=== PATIENT | female | born 1940 | race Caucasian/White ===

== ENCOUNTER 2017-10-07 12:14 | Inpatient (IN) | payer MEDICARE ==
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
[2017-10-07 13:28] LABS: HEMATOCRIT 34.2 % (41.0-60); HEMOGLOBIN 11.5 gm/dL (12-16); MEAN CELL VOLUME 90.2 fl (81-100); MEAN CORPUSCULAR HEMOGLOBIN 30.2 pg (27.0-31.0); MEAN CORPUSCULAR HGB CONC 33.5 pg (28.0-36.0); PLATELET COUNT 362 Th/cmm (150-400); RED BLOOD COUNT 3.79 Mil/cmm (3.80-5.20); RED CELL DISTRIBUTION WIDTH 15.1 % (11.5-20.0); WHITE BLOOD COUNT 7.4 Th/cmm (4.8-10.8)
[2017-10-07 13:45] LABS: ACETAMINOPHEN < 10.0 ug/mL (10.0-30.0); ALB/GLOB RATIO 1.1 (1.0-1.8); ALBUMIN 3.9 gm/dL (3.7-5.3); ALKALINE PHOSPHATASE 120 U/L (34-104); ANION GAP 12.7 (7.0-16.0); BILIRUBIN,TOTAL 0.6 mg/dL (0.3-1.0); BUN - UREA NITROGEN 16 mg/dL (7-25); CALCIUM SERUM 10.2 mg/dL (8.6-10.3); CARBON DIOXIDE 28.9 mEq/L (21.0-31.0); CHLORIDE 98 mEq/L (98-107); CHOLESTEROL 302 mg/dL (<200); CREATININE - SERUM 0.8 mg/dL (0.6-1.2); GLUCOSE 90 mg/dL (70-105); HDL -HIGH DENSITY LIPOPROTEIN 106 mg/dL (23-92); POTASSIUM SERUM 3.6 mEq/L (3.5-5.1); SGOT 21 U/L (13-39); SGPT/ALT 11 U/L (7-52); SODIUM SERUM 136 mEq/L (136-145); TOTAL PROTEIN,SERUM 7.4 gm/dL (6.0-8.3); TRIGLYCERIDES 91 mg/dL (<150)
[2017-10-07 13:50] LABS: BASOPHIL 4 % (0-3); EOSINOPHIL 2 % (0-5); LYMPHOCYTE 18 % (20-50); MONOCYTE 8 % (2-10); NEUTROPHILS 68 % (40-80); SALICYLATES (ASPIRIN) < 25.0 mg/L (30.0-100.0)
[2017-10-07 13:51] LABS: PLATELET ESTIMATE ADEQUATE (NORMAL)
[2017-10-07 14:18] LABS: URINE MICROSCOPIC INDICATED? YES; URINE SOURCE CLEAN C
[2017-10-07 14:21] LABS: URINE BILIRUBIN NEGATIVE (NEGATIVE); URINE BLOOD SMALL (NEGATIVE); URINE GLUCOSE (UA) NEGATIVE (NEGATIVE); URINE KETONE NEGATIVE (NEGATIVE); URINE LEUKOCYTE ESTERASE NEGATIVE (NEGATIVE); URINE NITRATE NEGATIVE (NEGATIVE); URINE PROTEIN 30 mg/dL (NEGATIVE); URINE UROBILINOGEN 0.2 E.U./dL (0.2 - 1.0)
[2017-10-07 14:36] LABS: AMPHETAMINE URINE NEGATIVE (NEGATIVE); BARBITURATES URINE NEGATIVE (NEGATIVE); BENZODIAZEPINES QUAL URINE NEGATIVE (NEGATIVE); CANNABINOID THC NEGATIVE (NEGATIVE); COCAINE METABOLITE QUAL URINE NEGATIVE (NEGATIVE); METHADONE URINE NEGATIVE (NEGATIVE); METHAMPHETAMINES QUAL URINE NEGATIVE (NEGATIVE); OPIATES (MORPHINE) QUAL. URINE NEGATIVE (NEGATIVE); PHENCYCLIDINE (PCP) URINE NEGATIVE (NEGATIVE); TRICYCLICS (TCA) QUAL. URINE NEGATIVE (NEGATIVE)
[2017-10-07 14:39] LABS: URINE CLARITY CLEAR (CLEAR); URINE COLOR YELLOW
[2017-10-07 14:41] LABS: URINE BACTERIA NONE SEEN /hpf (NONE SEEN); URINE EPITHELIAL CELLS FEW /lpf (FEW); URINE RBC 0-2 /hpf (0-5); URINE WBC 0-2 /hpf (0-5)
[2017-10-07 18:34] VITALS: BP 143/79
[2017-10-07] MEDS ORDERED: Magnesium Hydroxide (MOM) 30 mL UDC PO PRN (18:41)
[2017-10-07] MEDS ORDERED: Maalox 30 mL Cup PO PRN (18:41)
[2017-10-07 21:32] LABS: A1C % 6.4 % (4.0-6.0)
[2017-10-08] MEDS: Multivitamin Tab PO SCH (09:46)
[2017-10-08] MEDS: Vitamin D3 2,000 IU SGL PO SCH (09:46)
[2017-10-08] MEDS: Ferrous Sulfate 325 MG TAB PO SCH (09:46)
--- NOTE | 2017-10-08 20:35 | History & Physical ---
ADMIT DATE: 10/07/2017 HISTORY OF PRESENT ILLNESS: The patient is a 76-year-old female with long history of hypertension, hyperlipidemia, and dementia; admitted to Geropsych Department at [facility] with severe agitation and aggressive behavior. The patient evaluated by the ER physician, admitted to [facility], admitted under Dr. Riddle's service. The patient is a poor historian. PAST MEDICAL HISTORY: Significant for hypertension, hyperlipidemia, degenerative joint disease, and dementia. PAST SURGICAL HISTORY: No recent surgery. ALLERGIES: PENICILLIN. MEDICATIONS: Follow admission reconciliation. SOCIAL HISTORY: No smoking, no alcohol, no drug. FAMILY HISTORY: Noncontributory. REVIEW OF SYSTEMS: IMMUNOSYSTEM: No history of chronic renal disorder. CARDIOVASCULAR SYSTEM: No coronary artery disease. ENDOCRINE SYSTEM: No diabetes or thyroid problem. GASTROINTESTINAL SYSTEM: No upper or lower gastrointestinal bleed. NEUROLOGICAL SYSTEM: Seizure disorder. MUSCULOSKELETAL SYSTEM: No muscular dystrophy. HEMATOLOGIC: No bleeding tendency. RESPIRATORY SYSTEM: No asthma. GENITOURINARY SYSTEM: No dysuria or hematuria. PHYSICAL EXAMINATION: GENERAL: He is awake, not coherent. VITAL SIGNS: Temperature is 98, heart rate is 92, and blood pressure 162/93. HEENT: Normocephalic. Pupils reacting equal to light and accommodation. Sclerae clear. NECK: Supple. Negative for lymphadenopathy, JVD, or bruit. CHEST: Entry of air bilaterally normal. No rhonchi or wheezing. HEART: S1, S2 normal. No murmur or gallop rhythm. ABDOMEN: Soft, bowel sounds positive. EXTREMITIES: No edema. NEUROLOGIC: She is awake, alert, mildly confused. No focal motor deficits. Cranial nerves II through XII are intact. LABORATORY DATA: White blood 7.4, hemoglobin 11.5, hematocrit 34.2, and platelets 362. Sodium 136, potassium 3.6, BUN 16, and creatinine 0.8. Cholesterol 302. ASSESSMENT: 1. Hypertension. 2. Hyperlipidemia. 3. Anemia. 4. Dementia. PLAN: The patient admitted to the Hospital under Dr. Riddle's service. Medical problems addressed during hospitalization are dementia and psychosis. Medical problems addressed at discharge are hypertension, anemia, and hyperlipidemia. The patient is medically stable for activity. Thank you Dr. Riddle for asking me to see your patient. JOB# [id number]
[2017-10-09] MEDS: Multivitamin Tab PO SCH (10:23)
[2017-10-09] MEDS: Ferrous Sulfate 325 MG TAB PO SCH (10:23)
[2017-10-09] MEDS: Vitamin D3 2,000 IU SGL PO SCH (10:23)
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
--- NOTE | 2017-10-09 20:36 | Internal Medicine Prog Note ---
Internal Medicine Subjective - Subjective Service Date: 10/09/17 Patient seen and examined:: with staff Patient is:: awake, verbal, in bed, confused Per staff patient has:: no adverse event Internal Medicine Objective - Results Result Diagrams: 10/07/17 13:20 10/07/17 13:20 Recent Labs: Laboratory Last Values WBC 7.4 Th/cmm (4.8-10.8) 10/07/17 13:20 RBC 3.79 Mil/cmm (3.80-5.20) L 10/07/17 13:20 Hgb 11.5 gm/dL (12-16) L 10/07/17 13:20 Hct 34.2 % (41.0-60) L 10/07/17 13:20 MCV 90.2 fl (81-100) 10/07/17 13:20 MCH 30.2 pg (27.0-31.0) 10/07/17 13:20 MCHC Differential 33.5 pg (28.0-36.0) 10/07/17 13:20 RDW 15.1 % (11.5-20.0) 10/07/17 13:20 Plt Count 362 Th/cmm (150-400) 10/07/17 13:20 MPV 7.0 fl 10/07/17 13:20 Add Manual Diff YES 10/07/17 13:20 Neutrophils (Manual) 68 % (40-80) 10/07/17 13:20 Lymphocytes 18 % (20-50) L 10/07/17 13:20 Monocytes 8 % (2-10) 10/07/17 13:20 Eosinophils 2 % (0-5) 10/07/17 13:20 Basophils 4 % (0-3) H 10/07/17 13:20 Platelet Estimate ADEQUATE (NORMAL) 10/07/17 13:20 Sodium 136 mEq/L (136-145) 10/07/17 13:20 Potassium 3.6 mEq/L (3.5-5.1) 10/07/17 13:20 Chloride 98 mEq/L (98-107) 10/07/17 13:20 Carbon Dioxide 28.9 mEq/L (21.0-31.0) 10/07/17 13:20 Anion Gap 12.7 (7.0-16.0) 10/07/17 13:20 BUN 16 mg/dL (7-25) 10/07/17 13:20 Creatinine 0.8 mg/dL (0.6-1.2) 10/07/17 13:20 Est GFR ( Amer) TNP 10/07/17 13:20 Est GFR (Non-Af Amer) TNP 10/07/17 13:20 BUN/Creatinine Ratio 20.0 10/07/17 13:20 Glucose 90 mg/dL (70-105) 10/07/17 13:20 Hemoglobin A1c % 6.4 % (4.0-6.0) H 10/07/17 13:20 Calcium 10.2 mg/dL (8.6-10.3) 10/07/17 13:20 Total Bilirubin 0.6 mg/dL (0.3-1.0) 10/07/17 13:20 AST 21 U/L (13-39) 10/07/17 13:20 ALT 11 U/L (7-52) 10/07/17 13:20 Alkaline Phosphatase 120 U/L (34-104) H 10/07/17 13:20 Total Protein 7.4 gm/dL (6.0-8.3) 10/07/17 13:20 Albumin 3.9 gm/dL (3.7-5.3) 10/07/17 13:20 Globulin 3.5 gm/dL 10/07/17 13:20 Albumin/Globulin Ratio 1.1 (1.0-1.8) 10/07/17 13:20 Triglycerides 91 mg/dL (<150) 10/07/17 13:20 Cholesterol 302 mg/dL (<200) H 10/07/17 13:20 LDL Cholesterol Direct 151 mg/dL (75-193) 10/07/17 13:20 HDL Cholesterol 106 mg/dL (23-92) H 10/07/17 13:20 TSH 1.63 uIU/ml (0.34-5.60) 10/07/17 13:20 Urine Source CLEAN C 10/07/17 13:00 Urine Color YELLOW 10/07/17 13:00 Urine Clarity CLEAR (CLEAR) 10/07/17 13:00 Urine pH 6.0 (4.6 - 8.0) 10/07/17 13:00 Ur Specific [place] 1.015 (1.005-1.030) 10/07/17 13:00 Urine Protein 30 mg/dL (NEGATIVE) H 10/07/17 13:00 Urine Glucose (UA) NEGATIVE mg/dL (NEGATIVE) 10/07/17 13:00 Urine Ketones NEGATIVE mg/dL (NEGATIVE) 10/07/17 13:00 Urine Blood SMALL (NEGATIVE) H 10/07/17 13:00 Urine Nitrate NEGATIVE (NEGATIVE) 10/07/17 13:00 Urine Bilirubin NEGATIVE (NEGATIVE) 10/07/17 13:00 Urine Urobilinogen 0.2 E.U./dL (0.2 - 1.0) 10/07/17 13:00 Ur Leukocyte Esterase NEGATIVE (NEGATIVE) 10/07/17 13:00 Urine RBC 0-2 /hpf (0-5) 10/07/17 13:00 Urine WBC 0-2 /hpf (0-5) 10/07/17 13:00 Ur Epithelial Cells FEW /lpf (FEW) 10/07/17 13:00 Urine Bacteria NONE SEEN /hpf (NONE SEEN) 10/07/17 13:00 Salicylates < 25.0 mg/L (30.0-100.0) L 10/07/17 13:20 Urine Opiates Screen NEGATIVE (NEGATIVE) 10/07/17 13:00 Urine Methadone Screen NEGATIVE (NEGATIVE) 10/07/17 13:00 Acetaminophen < 10.0 ug/mL (10.0-30.0) L 10/07/17 13:20 Ur Barbiturates Screen NEGATIVE (NEGATIVE) 10/07/17 13:00 Ur Tricyclics Screen NEGATIVE (NEGATIVE) 10/07/17 13:00 Ur Phencyclidine Scrn NEGATIVE (NEGATIVE) 10/07/17 13:00 Amphetamines Screen NEGATIVE (NEGATIVE) 10/07/17 13:00 U Methamphetamines Scrn NEGATIVE (NEGATIVE) 10/07/17 13:00 U Benzodiazepines Scrn NEGATIVE (NEGATIVE) 10/07/17 13:00 U Cocaine Metab Screen NEGATIVE (NEGATIVE) 10/07/17 13:00 U Cannabinoids Screen NEGATIVE (NEGATIVE) 10/07/17 13:00 Ethyl Alcohol < 10 mg/dL (0-10) 10/07/17 13:20 RPR NONREACTIVE (NONREACTIVE) 10/07/17 13:20 - Physical Exam Vitals and I&O: Vital Signs Temp 99 F 10/09/17 19:54 Pulse 112 10/09/17 19:54 Resp 20 10/09/17 19:54 BP 126/78 10/09/17 19:54 Pulse Ox 93 10/09/17 19:54 Intake & Output 10/09/17 10/09/17 10/10/17 06:59 18:59 06:59 Intake Total 650 240 Balance 650 240 Intake: Oral 650 240 Other: # Voids 3 2 Active Medications: Current Medications Acetaminophen (Tylenol) 650 mg PO Q4HR PRN PRN Reason: Mild Pain / Temp above 100 Stop: 12/06/17 18:40 Al Hydrox/Mg Hydrox/Simethicone (Maalox) 30 ml PO Q4HR PRN PRN Reason: GI DISTRESS Stop: 12/06/17 18:40 Atorvastatin Calcium (Lipitor) 40 mg PO HS [facility] Stop: 12/06/17 20:59 Last Admin: 10/08/17 22:06 Dose: 40 mg Cyanocobalamin (Vitamin B12) 1,000 mcg PO DAILY [facility] Stop: 12/07/17 08:59 Last Admin: 10/09/17 10:23 Dose: 1,000 mcg Ferrous Sulfate (Iron) 325 mg PO DAILY [facility] Stop: 12/07/17 08:59 Last Admin: 10/09/17 10:23 Dose: 325 mg Lorazepam (Ativan) 0.5 mg PO Q4HR PRN; Protocol PRN Reason: Agitation Stop: 11/06/17 18:40 Last Admin: 10/07/17 20:37 Dose: 0.5 mg Losartan Potassium (Cozaar) 100 mg PO DAILY [facility] Stop: 12/07/17 08:59 Last Admin: 10/09/17 10:23 Dose: 100 mg Magnesium Hydroxide (Milk Of Magnesia) 30 ml PO HS PRN PRN Reason: Constipation Multivitamins/Vitamin C (Theragran) 1 tab PO DAILY [facility] Stop: 12/07/17 08:59 Last Admin: 10/09/17 10:23 Dose: 1 tab Quetiapine Fumarate (Seroquel) 12.5 mg PO TID [facility]; Protocol Stop: 12/07/17 14:59 Last Admin: 10/09/17 13:16 Dose: 12.5 mg Vitamin D (Vitamin D3) 2,000 iu PO DAILY [facility] Stop: 12/07/17 08:59 Last Admin: 10/09/17 10:23 Dose: 2,000 iu Zolpidem Tartrate (Ambien) 5 mg PO HS PRN PRN Reason: Insomnia Stop: 12/06/17 18:40 Last Admin: 10/07/17 21:33 Dose: 5 mg General: demented HEENT: NC/AT, PERRLA, anicteric sclerae, throat clear Neck: Supple, No JVD, No thyromegaly, +2 carotid pulse wo bruit, No LAD Lungs: CTAB Cardiovascular: RRR, Normal S1, Normal S2, without murmur Abdomen: non-tender, non-distended Extremities: clear Neurological: no change Internal Medicine Assmt/Plan - Assessment Assessment: 1.HTN. 2.HYPERLIPIDEMIA. 3.ANEMIA. 4.DEMENTIA. - Plan Plan: CONTINUE ON CURRENT MEDICATION AND DIET
--- NOTE | 2017-10-09 23:42 | Progress Notes ---
DATE: 10/09/2017 SUBJECTIVE: Chart reviewed and the patient interviewed. Also, discussed the patient's condition with the staff and reviewed records and labs. The patient is still confused and she is still agitated and irritable. The patient also is still unable to follow directions. The patient also still poor personal hygiene. The patient also still needs lots of redirections. Otherwise, the patient is compliant with taking her medications with no side effects of medications. ASSESSMENT: The patient is still agitated and is still in irritable mood. TREATMENT PLAN: We will continue monitoring her behavior and her condition closely. Also, continue to work on ineffective coping and continue to follow up. JOB# [id number]
[2017-10-10] MEDS: Vitamin D3 2,000 IU SGL PO SCH (09:23)
[2017-10-10] MEDS: Multivitamin Tab PO SCH (09:23)
[2017-10-10] MEDS: Ferrous Sulfate 325 MG TAB PO SCH (09:23)
--- NOTE | 2017-10-10 17:13 | Internal Medicine Prog Note ---
Internal Medicine Subjective - Subjective Service Date: 10/10/17 Patient seen and examined:: with staff Patient is:: awake, verbal, in bed, confused Per staff patient has:: no adverse event Internal Medicine Objective - Results Result Diagrams: 10/07/17 13:20 10/07/17 13:20 Recent Labs: Laboratory Last Values WBC 7.4 Th/cmm (4.8-10.8) 10/07/17 13:20 RBC 3.79 Mil/cmm (3.80-5.20) L 10/07/17 13:20 Hgb 11.5 gm/dL (12-16) L 10/07/17 13:20 Hct 34.2 % (41.0-60) L 10/07/17 13:20 MCV 90.2 fl (81-100) 10/07/17 13:20 MCH 30.2 pg (27.0-31.0) 10/07/17 13:20 MCHC Differential 33.5 pg (28.0-36.0) 10/07/17 13:20 RDW 15.1 % (11.5-20.0) 10/07/17 13:20 Plt Count 362 Th/cmm (150-400) 10/07/17 13:20 MPV 7.0 fl 10/07/17 13:20 Add Manual Diff YES 10/07/17 13:20 Neutrophils (Manual) 68 % (40-80) 10/07/17 13:20 Lymphocytes 18 % (20-50) L 10/07/17 13:20 Monocytes 8 % (2-10) 10/07/17 13:20 Eosinophils 2 % (0-5) 10/07/17 13:20 Basophils 4 % (0-3) H 10/07/17 13:20 Platelet Estimate ADEQUATE (NORMAL) 10/07/17 13:20 Sodium 136 mEq/L (136-145) 10/07/17 13:20 Potassium 3.6 mEq/L (3.5-5.1) 10/07/17 13:20 Chloride 98 mEq/L (98-107) 10/07/17 13:20 Carbon Dioxide 28.9 mEq/L (21.0-31.0) 10/07/17 13:20 Anion Gap 12.7 (7.0-16.0) 10/07/17 13:20 BUN 16 mg/dL (7-25) 10/07/17 13:20 Creatinine 0.8 mg/dL (0.6-1.2) 10/07/17 13:20 Est GFR ( Amer) TNP 10/07/17 13:20 Est GFR (Non-Af Amer) TNP 10/07/17 13:20 BUN/Creatinine Ratio 20.0 10/07/17 13:20 Glucose 90 mg/dL (70-105) 10/07/17 13:20 Hemoglobin A1c % 6.4 % (4.0-6.0) H 10/07/17 13:20 Calcium 10.2 mg/dL (8.6-10.3) 10/07/17 13:20 Total Bilirubin 0.6 mg/dL (0.3-1.0) 10/07/17 13:20 AST 21 U/L (13-39) 10/07/17 13:20 ALT 11 U/L (7-52) 10/07/17 13:20 Alkaline Phosphatase 120 U/L (34-104) H 10/07/17 13:20 Total Protein 7.4 gm/dL (6.0-8.3) 10/07/17 13:20 Albumin 3.9 gm/dL (3.7-5.3) 10/07/17 13:20 Globulin 3.5 gm/dL 10/07/17 13:20 Albumin/Globulin Ratio 1.1 (1.0-1.8) 10/07/17 13:20 Triglycerides 91 mg/dL (<150) 10/07/17 13:20 Cholesterol 302 mg/dL (<200) H 10/07/17 13:20 LDL Cholesterol Direct 151 mg/dL (75-193) 10/07/17 13:20 HDL Cholesterol 106 mg/dL (23-92) H 10/07/17 13:20 TSH 1.63 uIU/ml (0.34-5.60) 10/07/17 13:20 Urine Source CLEAN C 10/07/17 13:00 Urine Color YELLOW 10/07/17 13:00 Urine Clarity CLEAR (CLEAR) 10/07/17 13:00 Urine pH 6.0 (4.6 - 8.0) 10/07/17 13:00 Ur Specific [place] 1.015 (1.005-1.030) 10/07/17 13:00 Urine Protein 30 mg/dL (NEGATIVE) H 10/07/17 13:00 Urine Glucose (UA) NEGATIVE mg/dL (NEGATIVE) 10/07/17 13:00 Urine Ketones NEGATIVE mg/dL (NEGATIVE) 10/07/17 13:00 Urine Blood SMALL (NEGATIVE) H 10/07/17 13:00 Urine Nitrate NEGATIVE (NEGATIVE) 10/07/17 13:00 Urine Bilirubin NEGATIVE (NEGATIVE) 10/07/17 13:00 Urine Urobilinogen 0.2 E.U./dL (0.2 - 1.0) 10/07/17 13:00 Ur Leukocyte Esterase NEGATIVE (NEGATIVE) 10/07/17 13:00 Urine RBC 0-2 /hpf (0-5) 10/07/17 13:00 Urine WBC 0-2 /hpf (0-5) 10/07/17 13:00 Ur Epithelial Cells FEW /lpf (FEW) 10/07/17 13:00 Urine Bacteria NONE SEEN /hpf (NONE SEEN) 10/07/17 13:00 Salicylates < 25.0 mg/L (30.0-100.0) L 10/07/17 13:20 Urine Opiates Screen NEGATIVE (NEGATIVE) 10/07/17 13:00 Urine Methadone Screen NEGATIVE (NEGATIVE) 10/07/17 13:00 Acetaminophen < 10.0 ug/mL (10.0-30.0) L 10/07/17 13:20 Ur Barbiturates Screen NEGATIVE (NEGATIVE) 10/07/17 13:00 Ur Tricyclics Screen NEGATIVE (NEGATIVE) 10/07/17 13:00 Ur Phencyclidine Scrn NEGATIVE (NEGATIVE) 10/07/17 13:00 Amphetamines Screen NEGATIVE (NEGATIVE) 10/07/17 13:00 U Methamphetamines Scrn NEGATIVE (NEGATIVE) 10/07/17 13:00 U Benzodiazepines Scrn NEGATIVE (NEGATIVE) 10/07/17 13:00 U Cocaine Metab Screen NEGATIVE (NEGATIVE) 10/07/17 13:00 U Cannabinoids Screen NEGATIVE (NEGATIVE) 10/07/17 13:00 Ethyl Alcohol < 10 mg/dL (0-10) 10/07/17 13:20 RPR NONREACTIVE (NONREACTIVE) 10/07/17 13:20 - Physical Exam Vitals and I&O: Vital Signs Temp 97.5 F 07/15/18 14:00 Pulse 85 10/10/17 14:00 Resp 18 10/10/17 14:00 BP 125/72 10/10/17 14:00 Pulse Ox 97 10/10/17 14:00 Intake & Output 10/09/17 10/10/17 10/10/17 18:59 06:59 18:59 Intake Total 650 480 Balance 650 480 Intake: Oral 650 480 Other: # Voids 3 2 Active Medications: Current Medications Acetaminophen (Tylenol) 650 mg PO Q4HR PRN PRN Reason: Mild Pain / Temp above 100 Stop: 12/06/17 18:40 Al Hydrox/Mg Hydrox/Simethicone (Maalox) 30 ml PO Q4HR PRN PRN Reason: GI DISTRESS Stop: 12/06/17 18:40 Atorvastatin Calcium (Lipitor) 40 mg PO HS [facility] Stop: 12/06/17 20:59 Last Admin: 10/09/17 21:07 Dose: 40 mg Cyanocobalamin (Vitamin B12) 1,000 mcg PO DAILY [facility] Stop: 12/07/17 08:59 Last Admin: 10/10/17 09:23 Dose: 1,000 mcg Ferrous Sulfate (Iron) 325 mg PO DAILY [facility] Stop: 12/07/17 08:59 Last Admin: 10/10/17 09:23 Dose: 325 mg Lorazepam (Ativan) 0.5 mg PO Q4HR PRN; Protocol PRN Reason: Agitation Stop: 11/06/17 18:40 Last Admin: 10/07/17 20:37 Dose: 0.5 mg Losartan Potassium (Cozaar) 100 mg PO DAILY [facility] Stop: 12/07/17 08:59 Last Admin: 10/10/17 09:23 Dose: 100 mg Magnesium Hydroxide (Milk Of Magnesia) 30 ml PO HS PRN PRN Reason: Constipation Multivitamins/Vitamin C (Theragran) 1 tab PO DAILY [facility] Stop: 12/07/17 08:59 Last Admin: 10/10/17 09:23 Dose: 1 tab Quetiapine Fumarate (Seroquel) 12.5 mg PO TID [facility]; Protocol Stop: 12/07/17 14:59 Last Admin: 10/10/17 14:45 Dose: 12.5 mg Vitamin D (Vitamin D3) 2,000 iu PO DAILY [facility] Stop: 12/07/17 08:59 Last Admin: 10/10/17 09:23 Dose: 2,000 iu Zolpidem Tartrate (Ambien) 5 mg PO HS PRN PRN Reason: Insomnia Stop: 12/06/17 18:40 Last Admin: 10/07/17 21:33 Dose: 5 mg General: demented HEENT: NC/AT, PERRLA, anicteric sclerae, throat clear Neck: Supple, No JVD, No thyromegaly, +2 carotid pulse wo bruit, No LAD Lungs: CTAB Cardiovascular: RRR, Normal S1, Normal S2, without murmur Abdomen: non-tender, non-distended Extremities: clear Neurological: no change Internal Medicine Assmt/Plan - Assessment Assessment: 1.HTN. 2.HYPERLIPIDEMIA. 3.ANEMIA. 4.DEMENTIA. - Plan Plan: CONTINUE ON CURRENT MEDICATION AND DIET
--- NOTE | 2017-10-11 03:01 | Progress Notes ---
DATE: SUBJECTIVE: Chart reviewed and the patient interviewed. Also discussed the patient's condition with the staff and reviewed records and labs. The patient is still confused. The patient also is still preoccupied. She also is still easily agitated and she is still in irritable mood. She also is interacting minimally with others. The patient also is still having episodes of being loud. Otherwise, she is compliant taking her medications. ASSESSMENT: The patient is still confused and needs close monitoring. TREATMENT PLAN: Continue to monitor her behavior and her condition closely. Also, continue to work on adjusting psychotropic medications and continue to follow up. JOB# [id number]
[2017-10-11] MEDS: Vitamin D3 2,000 IU SGL PO SCH (09:24)
[2017-10-11] MEDS: Multivitamin Tab PO SCH (09:24)
[2017-10-11] MEDS: Ferrous Sulfate 325 MG TAB PO SCH (09:25)
--- NOTE | 2017-10-11 20:57 | Internal Medicine Prog Note ---
Internal Medicine Subjective - Subjective Service Date: 10/11/17 Patient seen and examined:: with staff Patient is:: awake, verbal, in bed, confused Per staff patient has:: no adverse event Internal Medicine Objective - Results Result Diagrams: 10/07/17 13:20 10/07/17 13:20 Recent Labs: Laboratory Last Values WBC 7.4 Th/cmm (4.8-10.8) 10/07/17 13:20 RBC 3.79 Mil/cmm (3.80-5.20) L 10/07/17 13:20 Hgb 11.5 gm/dL (12-16) L 10/07/17 13:20 Hct 34.2 % (41.0-60) L 10/07/17 13:20 MCV 90.2 fl (81-100) 10/07/17 13:20 MCH 30.2 pg (27.0-31.0) 10/07/17 13:20 MCHC Differential 33.5 pg (28.0-36.0) 10/07/17 13:20 RDW 15.1 % (11.5-20.0) 10/07/17 13:20 Plt Count 362 Th/cmm (150-400) 10/07/17 13:20 MPV 7.0 fl 10/07/17 13:20 Add Manual Diff YES 10/07/17 13:20 Neutrophils (Manual) 68 % (40-80) 10/07/17 13:20 Lymphocytes 18 % (20-50) L 10/07/17 13:20 Monocytes 8 % (2-10) 10/07/17 13:20 Eosinophils 2 % (0-5) 10/07/17 13:20 Basophils 4 % (0-3) H 10/07/17 13:20 Platelet Estimate ADEQUATE (NORMAL) 10/07/17 13:20 Sodium 136 mEq/L (136-145) 10/07/17 13:20 Potassium 3.6 mEq/L (3.5-5.1) 10/07/17 13:20 Chloride 98 mEq/L (98-107) 10/07/17 13:20 Carbon Dioxide 28.9 mEq/L (21.0-31.0) 10/07/17 13:20 Anion Gap 12.7 (7.0-16.0) 10/07/17 13:20 BUN 16 mg/dL (7-25) 10/07/17 13:20 Creatinine 0.8 mg/dL (0.6-1.2) 10/07/17 13:20 Est GFR ( Amer) TNP 10/07/17 13:20 Est GFR (Non-Af Amer) TNP 10/07/17 13:20 BUN/Creatinine Ratio 20.0 10/07/17 13:20 Glucose 90 mg/dL (70-105) 10/07/17 13:20 Hemoglobin A1c % 6.4 % (4.0-6.0) H 10/07/17 13:20 Calcium 10.2 mg/dL (8.6-10.3) 10/07/17 13:20 Total Bilirubin 0.6 mg/dL (0.3-1.0) 10/07/17 13:20 AST 21 U/L (13-39) 10/07/17 13:20 ALT 11 U/L (7-52) 10/07/17 13:20 Alkaline Phosphatase 120 U/L (34-104) H 10/07/17 13:20 Total Protein 7.4 gm/dL (6.0-8.3) 10/07/17 13:20 Albumin 3.9 gm/dL (3.7-5.3) 10/07/17 13:20 Globulin 3.5 gm/dL 10/07/17 13:20 Albumin/Globulin Ratio 1.1 (1.0-1.8) 10/07/17 13:20 Triglycerides 91 mg/dL (<150) 10/07/17 13:20 Cholesterol 302 mg/dL (<200) H 10/07/17 13:20 LDL Cholesterol Direct 151 mg/dL (75-193) 10/07/17 13:20 HDL Cholesterol 106 mg/dL (23-92) H 10/07/17 13:20 TSH 1.63 uIU/ml (0.34-5.60) 10/07/17 13:20 Urine Source CLEAN C 10/07/17 13:00 Urine Color YELLOW 10/07/17 13:00 Urine Clarity CLEAR (CLEAR) 10/07/17 13:00 Urine pH 6.0 (4.6 - 8.0) 10/07/17 13:00 Ur Specific [place] 1.015 (1.005-1.030) 10/07/17 13:00 Urine Protein 30 mg/dL (NEGATIVE) H 10/07/17 13:00 Urine Glucose (UA) NEGATIVE mg/dL (NEGATIVE) 10/07/17 13:00 Urine Ketones NEGATIVE mg/dL (NEGATIVE) 10/07/17 13:00 Urine Blood SMALL (NEGATIVE) H 10/07/17 13:00 Urine Nitrate NEGATIVE (NEGATIVE) 10/07/17 13:00 Urine Bilirubin NEGATIVE (NEGATIVE) 10/07/17 13:00 Urine Urobilinogen 0.2 E.U./dL (0.2 - 1.0) 10/07/17 13:00 Ur Leukocyte Esterase NEGATIVE (NEGATIVE) 10/07/17 13:00 Urine RBC 0-2 /hpf (0-5) 10/07/17 13:00 Urine WBC 0-2 /hpf (0-5) 10/07/17 13:00 Ur Epithelial Cells FEW /lpf (FEW) 10/07/17 13:00 Urine Bacteria NONE SEEN /hpf (NONE SEEN) 10/07/17 13:00 Salicylates < 25.0 mg/L (30.0-100.0) L 10/07/17 13:20 Urine Opiates Screen NEGATIVE (NEGATIVE) 10/07/17 13:00 Urine Methadone Screen NEGATIVE (NEGATIVE) 10/07/17 13:00 Acetaminophen < 10.0 ug/mL (10.0-30.0) L 10/07/17 13:20 Ur Barbiturates Screen NEGATIVE (NEGATIVE) 10/07/17 13:00 Ur Tricyclics Screen NEGATIVE (NEGATIVE) 10/07/17 13:00 Ur Phencyclidine Scrn NEGATIVE (NEGATIVE) 10/07/17 13:00 Amphetamines Screen NEGATIVE (NEGATIVE) 10/07/17 13:00 U Methamphetamines Scrn NEGATIVE (NEGATIVE) 10/07/17 13:00 U Benzodiazepines Scrn NEGATIVE (NEGATIVE) 10/07/17 13:00 U Cocaine Metab Screen NEGATIVE (NEGATIVE) 10/07/17 13:00 U Cannabinoids Screen NEGATIVE (NEGATIVE) 10/07/17 13:00 Ethyl Alcohol < 10 mg/dL (0-10) 10/07/17 13:20 RPR NONREACTIVE (NONREACTIVE) 10/07/17 13:20 - Physical Exam Vitals and I&O: Vital Signs Temp 98.1 F 07/16/18 20:00 Pulse 87 10/11/17 20:00 Resp 20 10/11/17 20:00 BP 156/78 10/11/17 20:00 Pulse Ox 99 10/11/17 20:00 Intake & Output 10/11/17 10/11/17 10/12/17 06:59 18:59 06:59 Intake Total 240 Balance 240 Intake: Oral 240 Other: # Voids 2 Active Medications: Current Medications Acetaminophen (Tylenol) 650 mg PO Q4HR PRN PRN Reason: Mild Pain / Temp above 100 Stop: 12/06/17 18:40 Al Hydrox/Mg Hydrox/Simethicone (Maalox) 30 ml PO Q4HR PRN PRN Reason: GI DISTRESS Stop: 12/06/17 18:40 Atorvastatin Calcium (Lipitor) 40 mg PO HS [facility]K Stop: 12/06/17 20:59 Last Admin: 10/10/17 21:20 Dose: 40 mg Cyanocobalamin (Vitamin B12) 1,000 mcg PO DAILY [facility] Stop: 12/07/17 08:59 Last Admin: 10/11/17 09:24 Dose: 1,000 mcg Ferrous Sulfate (Iron) 325 mg PO DAILY [facility]K Stop: 12/07/17 08:59 Last Admin: 10/11/17 09:25 Dose: 325 mg Lorazepam (Ativan) 0.5 mg PO Q4HR PRN; Protocol PRN Reason: Agitation Stop: 11/06/17 18:40 Last Admin: 10/07/17 20:37 Dose: 0.5 mg Losartan Potassium (Cozaar) 100 mg PO DAILY [facility] Stop: 12/07/17 08:59 Last Admin: 10/11/17 09:24 Dose: 100 mg Magnesium Hydroxide (Milk Of Magnesia) 30 ml PO HS PRN PRN Reason: Constipation Multivitamins/Vitamin C (Theragran) 1 tab PO DAILY [facility] Stop: 12/07/17 08:59 Last Admin: 10/11/17 09:24 Dose: 1 tab Quetiapine Fumarate (Seroquel) 12.5 mg PO BID [facility]; Protocol Stop: 12/10/17 08:59 Last Admin: 10/11/17 17:15 Dose: 12.5 mg Vitamin D (Vitamin D3) 2,000 iu PO DAILY [facility] Stop: 12/07/17 08:59 Last Admin: 10/11/17 09:24 Dose: 2,000 iu Zolpidem Tartrate (Ambien) 5 mg PO HS PRN PRN Reason: Insomnia Stop: 12/06/17 18:40 Last Admin: 10/07/17 21:33 Dose: 5 mg General: demented HEENT: NC/AT, PERRLA, anicteric sclerae, throat clear Neck: Supple, No JVD, No thyromegaly, +2 carotid pulse wo bruit, No LAD Lungs: CTAB Cardiovascular: RRR, Normal S1, Normal S2, without murmur Abdomen: non-tender, non-distended Extremities: clear Neurological: no change Internal Medicine Assmt/Plan - Assessment Assessment: 1.HTN. 2.HYPERLIPIDEMIA. 3.ANEMIA. 4.DEMENTIA. - Plan Plan: CONTINUE ON CURRENT MEDICATION AND DIET Nutritional Asmnt/Malnutr-PDOC - Dietary Evaluation Malnutrition Findings (Please click <Entered> for more info): Nutritional Asmnt/Malnutrition Start: 10/11/17 14: 34 Text: Status: Complete Freq: Protocol: Document 10/11/17 14:34 LCHENG (Rec: 10/11/17 14:44 LCHENG [email or web address]) Nutritional Asmnt/Malnutrition Patient General Information Nutritional Screening Moderate Risk Diagnosis psychosis Pertinent Medical Hx/Surgical Hx HTN, hyperlipidemia, DJD, dementia Subjective Information Pt seen in amando-chair in the hallway, talkative and confused. PO intake 75-100% of meals. Current Diet Order/ Nutrition Support PRICE, low fat Pertinent Medications vit B12, Iron, theragran, seroquel, vit D3 Pertinent Labs 10/07 glucose 90, A1c 6.4 Nutritional Hx/Data Height 1.57 m Height (Calculated Centimeters) 157.5 Current Weight (lbs) 45.359 kg Weight (Calculated Kilograms) 45.4 Weight (Calculated Grams) 63273.2 [place] Body Weight 110 Body Mass Index (BMI) 18.3 Weight Status Underweight GI Symptoms GI Symptoms None Last BM 10/07 Difficult in: None Skin Integrity/Comment: carlos score 19 Current %PO Good (75-100%) Estimated Nutritional Goals BEE in Kcals: Using Current wt Calories/Kcals/Kg 25-30 Kcals Calculated 2956-4229 Protein: Using Current wt Protein g/k-1.2 Protein Calculated 45-54 Fluid: ml 1125-1350ml (1ml/kcal) Nutritional Problem No current Nutrition Prob Problem N/A Malnutrition Alert Is there a minimum of two criteria No selected? Query Text:Check all the applicable criteria. A minimum of two criteria are recommended for diagnosis of either severe or non-severe malnutrition. Malnutrition Related to Morbid Obesity Malnutrition related to morbid obesity No Intervention/Recommendation Comments 1. Continue with PRICE, low fat diet as ordered. Monitor glucose level. 2. Monitor PO intake, wt, labs and skin integrity 3. F/U as low risk in 7 days, 10/18 Expected Outcomes/Goals Expected Outcomes/Goals 1. PO intake to meet at least 75% of nutritional needs. 2. Wt stability, skin to remain intact, labs to approach WNL.
--- NOTE | 2017-10-11 23:43 | Progress Notes ---
DATE: 10/11/2017 Chart reviewed and the patient interviewed. Also discussed the patient's condition with the staff and reviewed records and labs. The patient is still confused and her judgment is still poor. The patient also is still having episodes of agitation, but she seems to be calmer than before and she seems to be less agitated. The patient also seems to be slightly sleepy today than yesterday. ASSESSMENT: The patient seems to be calmer and less agitated. TREATMENT PLAN: We will continue monitoring her condition. Also, decrease Seroquel to 12.5 mg twice a day. Also, we will try to get the patient to placement in [facility] and will continue to follow up. [facility]# [id number]
[2017-10-12] MEDS: Multivitamin Tab PO SCH (09:05)
[2017-10-12] MEDS: Ferrous Sulfate 325 MG TAB PO SCH (09:05)
[2017-10-12] MEDS: Vitamin D3 2,000 IU SGL PO SCH (09:05)
--- NOTE | 2017-10-12 22:15 | Internal Medicine Prog Note ---
Internal Medicine Subjective - Subjective Service Date: 10/12/17 Patient seen and examined:: with staff Patient is:: awake, verbal, in bed, confused Per staff patient has:: no adverse event Internal Medicine Objective - Results Result Diagrams: 10/07/17 13:20 10/07/17 13:20 Recent Labs: Laboratory Last Values WBC 7.4 Th/cmm (4.8-10.8) 10/07/17 13:20 RBC 3.79 Mil/cmm (3.80-5.20) L 10/07/17 13:20 Hgb 11.5 gm/dL (12-16) L 10/07/17 13:20 Hct 34.2 % (41.0-60) L 10/07/17 13:20 MCV 90.2 fl (81-100) 10/07/17 13:20 MCH 30.2 pg (27.0-31.0) 10/07/17 13:20 MCHC Differential 33.5 pg (28.0-36.0) 10/07/17 13:20 RDW 15.1 % (11.5-20.0) 10/07/17 13:20 Plt Count 362 Th/cmm (150-400) 10/07/17 13:20 MPV 7.0 fl 10/07/17 13:20 Add Manual Diff YES 10/07/17 13:20 Neutrophils (Manual) 68 % (40-80) 10/07/17 13:20 Lymphocytes 18 % (20-50) L 10/07/17 13:20 Monocytes 8 % (2-10) 10/07/17 13:20 Eosinophils 2 % (0-5) 10/07/17 13:20 Basophils 4 % (0-3) H 10/07/17 13:20 Platelet Estimate ADEQUATE (NORMAL) 10/07/17 13:20 Sodium 136 mEq/L (136-145) 10/07/17 13:20 Potassium 3.6 mEq/L (3.5-5.1) 10/07/17 13:20 Chloride 98 mEq/L (98-107) 10/07/17 13:20 Carbon Dioxide 28.9 mEq/L (21.0-31.0) 10/07/17 13:20 Anion Gap 12.7 (7.0-16.0) 10/07/17 13:20 BUN 16 mg/dL (7-25) 10/07/17 13:20 Creatinine 0.8 mg/dL (0.6-1.2) 10/07/17 13:20 Est GFR ( Amer) TNP 10/07/17 13:20 Est GFR (Non-Af Amer) TNP 10/07/17 13:20 BUN/Creatinine Ratio 20.0 10/07/17 13:20 Glucose 90 mg/dL (70-105) 10/07/17 13:20 Hemoglobin A1c % 6.4 % (4.0-6.0) H 10/07/17 13:20 Calcium 10.2 mg/dL (8.6-10.3) 10/07/17 13:20 Total Bilirubin 0.6 mg/dL (0.3-1.0) 10/07/17 13:20 AST 21 U/L (13-39) 10/07/17 13:20 ALT 11 U/L (7-52) 10/07/17 13:20 Alkaline Phosphatase 120 U/L (34-104) H 10/07/17 13:20 Total Protein 7.4 gm/dL (6.0-8.3) 10/07/17 13:20 Albumin 3.9 gm/dL (3.7-5.3) 10/07/17 13:20 Globulin 3.5 gm/dL 10/07/17 13:20 Albumin/Globulin Ratio 1.1 (1.0-1.8) 10/07/17 13:20 Triglycerides 91 mg/dL (<150) 10/07/17 13:20 Cholesterol 302 mg/dL (<200) H 10/07/17 13:20 LDL Cholesterol Direct 151 mg/dL (75-193) 10/07/17 13:20 HDL Cholesterol 106 mg/dL (23-92) H 10/07/17 13:20 TSH 1.63 uIU/ml (0.34-5.60) 10/07/17 13:20 Urine Source CLEAN C 10/07/17 13:00 Urine Color YELLOW 10/07/17 13:00 Urine Clarity CLEAR (CLEAR) 10/07/17 13:00 Urine pH 6.0 (4.6 - 8.0) 10/07/17 13:00 Ur Specific [place] 1.015 (1.005-1.030) 10/07/17 13:00 Urine Protein 30 mg/dL (NEGATIVE) H 10/07/17 13:00 Urine Glucose (UA) NEGATIVE mg/dL (NEGATIVE) 10/07/17 13:00 Urine Ketones NEGATIVE mg/dL (NEGATIVE) 10/07/17 13:00 Urine Blood SMALL (NEGATIVE) H 10/07/17 13:00 Urine Nitrate NEGATIVE (NEGATIVE) 10/07/17 13:00 Urine Bilirubin NEGATIVE (NEGATIVE) 10/07/17 13:00 Urine Urobilinogen 0.2 E.U./dL (0.2 - 1.0) 10/07/17 13:00 Ur Leukocyte Esterase NEGATIVE (NEGATIVE) 10/07/17 13:00 Urine RBC 0-2 /hpf (0-5) 10/07/17 13:00 Urine WBC 0-2 /hpf (0-5) 10/07/17 13:00 Ur Epithelial Cells FEW /lpf (FEW) 10/07/17 13:00 Urine Bacteria NONE SEEN /hpf (NONE SEEN) 10/07/17 13:00 Salicylates < 25.0 mg/L (30.0-100.0) L 10/07/17 13:20 Urine Opiates Screen NEGATIVE (NEGATIVE) 10/07/17 13:00 Urine Methadone Screen NEGATIVE (NEGATIVE) 10/07/17 13:00 Acetaminophen < 10.0 ug/mL (10.0-30.0) L 10/07/17 13:20 Ur Barbiturates Screen NEGATIVE (NEGATIVE) 10/07/17 13:00 Ur Tricyclics Screen NEGATIVE (NEGATIVE) 10/07/17 13:00 Ur Phencyclidine Scrn NEGATIVE (NEGATIVE) 10/07/17 13:00 Amphetamines Screen NEGATIVE (NEGATIVE) 10/07/17 13:00 U Methamphetamines Scrn NEGATIVE (NEGATIVE) 10/07/17 13:00 U Benzodiazepines Scrn NEGATIVE (NEGATIVE) 10/07/17 13:00 U Cocaine Metab Screen NEGATIVE (NEGATIVE) 10/07/17 13:00 U Cannabinoids Screen NEGATIVE (NEGATIVE) 10/07/17 13:00 Ethyl Alcohol < 10 mg/dL (0-10) 10/07/17 13:20 RPR NONREACTIVE (NONREACTIVE) 10/07/17 13:20 - Physical Exam Vitals and I&O: Vital Signs Temp 98.1 F 07/17/18 16:16 Pulse 88 10/12/17 16:16 Resp 20 10/12/17 16:16 BP 154/86 10/12/17 16:16 Pulse Ox 92 10/12/17 16:16 Active Medications: Current Medications Acetaminophen (Tylenol) 650 mg PO Q4HR PRN PRN Reason: Mild Pain / Temp above 100 Stop: 12/06/17 18:40 Al Hydrox/Mg Hydrox/Simethicone (Maalox) 30 ml PO Q4HR PRN PRN Reason: GI DISTRESS Stop: 12/06/17 18:40 Atorvastatin Calcium (Lipitor) 40 mg PO HS [facility] Stop: 12/06/17 20:59 Last Admin: 10/12/17 20:49 Dose: 40 mg Cyanocobalamin (Vitamin B12) 1,000 mcg PO DAILY [facility] Stop: 12/07/17 08:59 Last Admin: 10/12/17 09:05 Dose: 1,000 mcg Ferrous Sulfate (Iron) 325 mg PO DAILY [facility] Stop: 12/07/17 08:59 Last Admin: 10/12/17 09:05 Dose: 325 mg Lorazepam (Ativan) 0.5 mg PO Q4HR PRN; Protocol PRN Reason: Agitation Stop: 11/06/17 18:40 Last Admin: 10/12/17 20:49 Dose: 0.5 mg Losartan Potassium (Cozaar) 100 mg PO DAILY [facility] Stop: 12/07/17 08:59 Last Admin: 10/12/17 09:04 Dose: 100 mg Magnesium Hydroxide (Milk Of Magnesia) 30 ml PO HS PRN PRN Reason: Constipation Multivitamins/Vitamin C (Theragran) 1 tab PO DAILY [facility] Stop: 12/07/17 08:59 Last Admin: 10/12/17 09:05 Dose: 1 tab Quetiapine Fumarate (Seroquel) 12.5 mg PO BID [facility]; Protocol Stop: 12/10/17 08:59 Last Admin: 10/12/17 16:25 Dose: 12.5 mg Vitamin D (Vitamin D3) 2,000 iu PO DAILY [facility] Stop: 12/07/17 08:59 Last Admin: 10/12/17 09:05 Dose: 2,000 iu Zolpidem Tartrate (Ambien) 5 mg PO HS PRN PRN Reason: Insomnia Stop: 12/06/17 18:40 Last Admin: 10/12/17 00:20 Dose: 5 mg General: demented HEENT: NC/AT, PERRLA, anicteric sclerae, throat clear Neck: Supple, No JVD, No thyromegaly, +2 carotid pulse wo bruit, No LAD Lungs: CTAB Cardiovascular: RRR, Normal S1, Normal S2, without murmur Abdomen: non-tender, non-distended Extremities: clear Neurological: no change Internal Medicine Assmt/Plan - Assessment Assessment: 1.HTN. 2.HYPERLIPIDEMIA. 3.ANEMIA. 4.DEMENTIA. - Plan Plan: CONTINUE ON CURRENT MEDICATION AND DIET Nutritional Asmnt/Malnutr-PDOC - Dietary Evaluation Malnutrition Findings (Please click <Entered> for more info): Nutritional Asmnt/Malnutrition Start: 10/11/17 14: 34 Text: Status: Complete Freq: Protocol: Document 10/11/17 14:34 LCCLARAG (Rec: 10/11/17 14:44 LCCLARAG [id number]) Nutritional Asmnt/Malnutrition Patient General Information Nutritional Screening Moderate Risk Diagnosis psychosis Pertinent Medical Hx/Surgical Hx HTN, hyperlipidemia, DJD, dementia Subjective Information Pt seen in amando-chair in the hallway, talkative and confused. PO intake 75-100% of meals. Current Diet Order/ Nutrition Support PRICE, low fat Pertinent Medications vit B12, Iron, theragran, seroquel, vit D3 Pertinent Labs 10/07 glucose 90, A1c 6.4 Nutritional Hx/Data Height 1.57 m Height (Calculated Centimeters) 157.5 Current Weight (lbs) 45.359 kg Weight (Calculated Kilograms) 45.4 Weight (Calculated Grams) 47931.2 [place] Body Weight 110 Body Mass Index (BMI) 18.3 Weight Status Underweight GI Symptoms GI Symptoms None Last BM 10/07 Difficult in: None Skin Integrity/Comment: carlos score 19 Current %PO Good (75-100%) Estimated Nutritional Goals BEE in Kcals: Using Current wt Calories/Kcals/Kg 25-30 Kcals Calculated 5455-1319 Protein: Using Current wt Protein g/k-1.2 Protein Calculated 45-54 Fluid: ml 1125-1350ml (1ml/kcal) Nutritional Problem No current Nutrition Prob Problem N/A Malnutrition Alert Is there a minimum of two criteria No selected? Query Text:Check all the applicable criteria. A minimum of two criteria are recommended for diagnosis of either severe or non-severe malnutrition. Malnutrition Related to Morbid Obesity Malnutrition related to morbid obesity No Intervention/Recommendation Comments 1. Continue with PRICE, low fat diet as ordered. Monitor glucose level. 2. Monitor PO intake, wt, labs and skin integrity 3. F/U as low risk in 7 days, 10/18 Expected Outcomes/Goals Expected Outcomes/Goals 1. PO intake to meet at least 75% of nutritional needs. 2. Wt stability, skin to remain intact, labs to approach WNL.
--- NOTE | 2017-10-13 01:35 | Progress Notes ---
DATE: 10/12/2017 SUBJECTIVE: Chart reviewed and the patient interviewed. Also discussed the patient's condition with the staff and reviewed records and labs. The patient continued to be confused and anxious. The patient also is still having episodes of irritability and agitation. The patient also is interacting more with confusion and irritability. The patient needs lots of redirections. Impaired immediate, recent memories. Also, personal hygiene is still disheveled. ASSESSMENT: The patient is still confused and still agitated but seems to be less than before. TREATMENT PLAN: Continue to monitor her behavior and her condition closely. Also, continue to work on discharge plans and placement issue. JOB# [id number]
[2017-10-13] MEDS: Vitamin D3 2,000 IU SGL PO SCH (08:34)
[2017-10-13] MEDS: Ferrous Sulfate 325 MG TAB PO SCH (08:34)
[2017-10-13] MEDS: Multivitamin Tab PO SCH (08:36)
--- NOTE | 2017-10-13 21:26 | Progress Notes ---
DATE: 10/13/2017 SUBJECTIVE: Chart reviewed and the patient interviewed. Also discussed the patient's condition with the staff and reviewed records and labs. The patient is still confused and she is still agitated. The patient also is restless and is in irritable mood at times. The patient also is suspicious and easily agitated. Otherwise, the patient is compliant with taking her medications with no side effects of medications. ASSESSMENT: The patient is still psychotic, but easier to redirect her. TREATMENT PLAN: Continue to monitor behavior and condition closely. Also, continue adjusting psychotropic medications and followup. JOB# [id number]
--- NOTE | 2017-10-13 21:37 | Internal Medicine Prog Note ---
Internal Medicine Subjective - Subjective Service Date: 10/13/17 Patient seen and examined:: with staff Patient is:: awake, verbal, in bed, confused Per staff patient has:: no adverse event Internal Medicine Objective - Results Result Diagrams: 10/07/17 13:20 10/07/17 13:20 Recent Labs: Laboratory Last Values WBC 7.4 Th/cmm (4.8-10.8) 10/07/17 13:20 RBC 3.79 Mil/cmm (3.80-5.20) L 10/07/17 13:20 Hgb 11.5 gm/dL (12-16) L 10/07/17 13:20 Hct 34.2 % (41.0-60) L 10/07/17 13:20 MCV 90.2 fl (81-100) 10/07/17 13:20 MCH 30.2 pg (27.0-31.0) 10/07/17 13:20 MCHC Differential 33.5 pg (28.0-36.0) 10/07/17 13:20 RDW 15.1 % (11.5-20.0) 10/07/17 13:20 Plt Count 362 Th/cmm (150-400) 10/07/17 13:20 MPV 7.0 fl 10/07/17 13:20 Add Manual Diff YES 10/07/17 13:20 Neutrophils (Manual) 68 % (40-80) 10/07/17 13:20 Lymphocytes 18 % (20-50) L 10/07/17 13:20 Monocytes 8 % (2-10) 10/07/17 13:20 Eosinophils 2 % (0-5) 10/07/17 13:20 Basophils 4 % (0-3) H 10/07/17 13:20 Platelet Estimate ADEQUATE (NORMAL) 10/07/17 13:20 Sodium 136 mEq/L (136-145) 10/07/17 13:20 Potassium 3.6 mEq/L (3.5-5.1) 10/07/17 13:20 Chloride 98 mEq/L (98-107) 10/07/17 13:20 Carbon Dioxide 28.9 mEq/L (21.0-31.0) 10/07/17 13:20 Anion Gap 12.7 (7.0-16.0) 10/07/17 13:20 BUN 16 mg/dL (7-25) 10/07/17 13:20 Creatinine 0.8 mg/dL (0.6-1.2) 10/07/17 13:20 Est GFR ( Amer) TNP 10/07/17 13:20 Est GFR (Non-Af Amer) TNP 10/07/17 13:20 BUN/Creatinine Ratio 20.0 10/07/17 13:20 Glucose 90 mg/dL (70-105) 10/07/17 13:20 Hemoglobin A1c % 6.4 % (4.0-6.0) H 10/07/17 13:20 Calcium 10.2 mg/dL (8.6-10.3) 10/07/17 13:20 Total Bilirubin 0.6 mg/dL (0.3-1.0) 10/07/17 13:20 AST 21 U/L (13-39) 10/07/17 13:20 ALT 11 U/L (7-52) 10/07/17 13:20 Alkaline Phosphatase 120 U/L (34-104) H 10/07/17 13:20 Total Protein 7.4 gm/dL (6.0-8.3) 10/07/17 13:20 Albumin 3.9 gm/dL (3.7-5.3) 10/07/17 13:20 Globulin 3.5 gm/dL 10/07/17 13:20 Albumin/Globulin Ratio 1.1 (1.0-1.8) 10/07/17 13:20 Triglycerides 91 mg/dL (<150) 10/07/17 13:20 Cholesterol 302 mg/dL (<200) H 10/07/17 13:20 LDL Cholesterol Direct 151 mg/dL (75-193) 10/07/17 13:20 HDL Cholesterol 106 mg/dL (23-92) H 10/07/17 13:20 TSH 1.63 uIU/ml (0.34-5.60) 10/07/17 13:20 Urine Source CLEAN C 10/07/17 13:00 Urine Color YELLOW 10/07/17 13:00 Urine Clarity CLEAR (CLEAR) 10/07/17 13:00 Urine pH 6.0 (4.6 - 8.0) 10/07/17 13:00 Ur Specific [place] 1.015 (1.005-1.030) 10/07/17 13:00 Urine Protein 30 mg/dL (NEGATIVE) H 10/07/17 13:00 Urine Glucose (UA) NEGATIVE mg/dL (NEGATIVE) 10/07/17 13:00 Urine Ketones NEGATIVE mg/dL (NEGATIVE) 10/07/17 13:00 Urine Blood SMALL (NEGATIVE) H 10/07/17 13:00 Urine Nitrate NEGATIVE (NEGATIVE) 10/07/17 13:00 Urine Bilirubin NEGATIVE (NEGATIVE) 10/07/17 13:00 Urine Urobilinogen 0.2 E.U./dL (0.2 - 1.0) 10/07/17 13:00 Ur Leukocyte Esterase NEGATIVE (NEGATIVE) 10/07/17 13:00 Urine RBC 0-2 /hpf (0-5) 10/07/17 13:00 Urine WBC 0-2 /hpf (0-5) 10/07/17 13:00 Ur Epithelial Cells FEW /lpf (FEW) 10/07/17 13:00 Urine Bacteria NONE SEEN /hpf (NONE SEEN) 10/07/17 13:00 Salicylates < 25.0 mg/L (30.0-100.0) L 10/07/17 13:20 Urine Opiates Screen NEGATIVE (NEGATIVE) 10/07/17 13:00 Urine Methadone Screen NEGATIVE (NEGATIVE) 10/07/17 13:00 Acetaminophen < 10.0 ug/mL (10.0-30.0) L 10/07/17 13:20 Ur Barbiturates Screen NEGATIVE (NEGATIVE) 10/07/17 13:00 Ur Tricyclics Screen NEGATIVE (NEGATIVE) 10/07/17 13:00 Ur Phencyclidine Scrn NEGATIVE (NEGATIVE) 10/07/17 13:00 Amphetamines Screen NEGATIVE (NEGATIVE) 10/07/17 13:00 U Methamphetamines Scrn NEGATIVE (NEGATIVE) 10/07/17 13:00 U Benzodiazepines Scrn NEGATIVE (NEGATIVE) 10/07/17 13:00 U Cocaine Metab Screen NEGATIVE (NEGATIVE) 10/07/17 13:00 U Cannabinoids Screen NEGATIVE (NEGATIVE) 10/07/17 13:00 Ethyl Alcohol < 10 mg/dL (0-10) 10/07/17 13:20 RPR NONREACTIVE (NONREACTIVE) 10/07/17 13:20 - Physical Exam Vitals and I&O: Vital Signs Temp 98.2 F 07/18/18 14:00 Pulse 96 10/13/17 14:00 Resp 18 10/13/17 14:00 BP 131/78 10/13/17 14:00 Pulse Ox 100 10/13/17 14:00 Intake & Output 10/13/17 10/13/17 10/14/17 06:59 18:59 06:59 Intake Total 700 Balance 700 Intake: Oral 700 Active Medications: Current Medications Acetaminophen (Tylenol) 650 mg PO Q4HR PRN PRN Reason: Mild Pain / Temp above 100 Stop: 12/06/17 18:40 Al Hydrox/Mg Hydrox/Simethicone (Maalox) 30 ml PO Q4HR PRN PRN Reason: GI DISTRESS Stop: 12/06/17 18:40 Atorvastatin Calcium (Lipitor) 40 mg PO HS [facility] Stop: 12/06/17 20:59 Last Admin: 10/12/17 20:49 Dose: 40 mg Cyanocobalamin (Vitamin B12) 1,000 mcg PO DAILY [facility] Stop: 12/07/17 08:59 Last Admin: 10/13/17 08:36 Dose: 1,000 mcg Ferrous Sulfate (Iron) 325 mg PO DAILY [facility] Stop: 12/07/17 08:59 Last Admin: 10/13/17 08:34 Dose: 325 mg Losartan Potassium (Cozaar) 100 mg PO DAILY [facility] Stop: 12/07/17 08:59 Last Admin: 10/13/17 08:34 Dose: 100 mg Magnesium Hydroxide (Milk Of Magnesia) 30 ml PO HS PRN PRN Reason: Constipation Multivitamins/Vitamin C (Theragran) 1 tab PO DAILY [facility] Stop: 12/07/17 08:59 Last Admin: 10/13/17 08:36 Dose: 1 tab Quetiapine Fumarate (Seroquel) 12.5 mg PO DAILY [facility]; Protocol Stop: 12/12/17 08:59 Last Admin: 10/13/17 08:36 Dose: 12.5 mg Quetiapine Fumarate (Seroquel) 25 mg PO HS [facility]; Protocol Stop: 12/12/17 20:59 Vitamin D (Vitamin D3) 2,000 iu PO DAILY [facility] Stop: 12/07/17 08:59 Last Admin: 10/13/17 08:34 Dose: 2,000 iu General: demented HEENT: NC/AT, PERRLA, anicteric sclerae, throat clear Neck: Supple, No JVD, No thyromegaly, +2 carotid pulse wo bruit, No LAD Lungs: CTAB Cardiovascular: RRR, Normal S1, Normal S2, without murmur Abdomen: non-tender, non-distended Extremities: clear Neurological: no change Internal Medicine Assmt/Plan - Assessment Assessment: 1.HTN. 2.HYPERLIPIDEMIA. 3.ANEMIA. 4.DEMENTIA. - Plan Plan: CONTINUE ON CURRENT MEDICATION AND DIET Nutritional Asmnt/Malnutr-PDOC - Dietary Evaluation Malnutrition Findings (Please click <Entered> for more info): Nutritional Asmnt/Malnutrition Start: 10/11/17 14: 34 Text: Status: Complete Freq: Protocol: Document 10/11/17 14:34 INDIRAG (Rec: 10/11/17 14:44 LCCLARAG [id number]) Nutritional Asmnt/Malnutrition Patient General Information Nutritional Screening Moderate Risk Diagnosis psychosis Pertinent Medical Hx/Surgical Hx HTN, hyperlipidemia, DJD, dementia Subjective Information Pt seen in amando-chair in the hallway, talkative and confused. PO intake 75-100% of meals. Current Diet Order/ Nutrition Support PRICE, low fat Pertinent Medications vit B12, Iron, theragran, seroquel, vit D3 Pertinent Labs 10/07 glucose 90, A1c 6.4 Nutritional Hx/Data Height 1.57 m Height (Calculated Centimeters) 157.5 Current Weight (lbs) 45.359 kg Weight (Calculated Kilograms) 45.4 Weight (Calculated Grams) 67246.2 [place] Body Weight 110 Body Mass Index (BMI) 18.3 Weight Status Underweight GI Symptoms GI Symptoms None Last BM 10/07 Difficult in: None Skin Integrity/Comment: carlos score 19 Current %PO Good (75-100%) Estimated Nutritional Goals BEE in Kcals: Using Current wt Calories/Kcals/Kg 25-30 Kcals Calculated 5229-5721 Protein: Using Current wt Protein g/k-1.2 Protein Calculated 45-54 Fluid: ml 1125-1350ml (1ml/kcal) Nutritional Problem No current Nutrition Prob Problem N/A Malnutrition Alert Is there a minimum of two criteria No selected? Query Text:Check all the applicable criteria. A minimum of two criteria are recommended for diagnosis of either severe or non-severe malnutrition. Malnutrition Related to Morbid Obesity Malnutrition related to morbid obesity No Intervention/Recommendation Comments 1. Continue with PRICE, low fat diet as ordered. Monitor glucose level. 2. Monitor PO intake, wt, labs and skin integrity 3. F/U as low risk in 7 days, 10/18 Expected Outcomes/Goals Expected Outcomes/Goals 1. PO intake to meet at least 75% of nutritional needs. 2. Wt stability, skin to remain intact, labs to approach WNL.
[2017-10-14] MEDS: Ferrous Sulfate 325 MG TAB PO SCH (09:18)
[2017-10-14] MEDS: Vitamin D3 2,000 IU SGL PO SCH (09:18)
[2017-10-14] MEDS: Multivitamin Tab PO SCH (10:00)
--- NOTE | 2017-10-14 21:22 | Internal Medicine Prog Note ---
Internal Medicine Subjective - Subjective Service Date: 10/14/17 Patient seen and examined:: with staff Patient is:: awake, verbal, in bed, confused Per staff patient has:: no adverse event Internal Medicine Objective - Results Result Diagrams: 10/07/17 13:20 10/07/17 13:20 Recent Labs: Laboratory Last Values WBC 7.4 Th/cmm (4.8-10.8) 10/07/17 13:20 RBC 3.79 Mil/cmm (3.80-5.20) L 10/07/17 13:20 Hgb 11.5 gm/dL (12-16) L 10/07/17 13:20 Hct 34.2 % (41.0-60) L 10/07/17 13:20 MCV 90.2 fl (81-100) 10/07/17 13:20 MCH 30.2 pg (27.0-31.0) 10/07/17 13:20 MCHC Differential 33.5 pg (28.0-36.0) 10/07/17 13:20 RDW 15.1 % (11.5-20.0) 10/07/17 13:20 Plt Count 362 Th/cmm (150-400) 10/07/17 13:20 MPV 7.0 fl 10/07/17 13:20 Add Manual Diff YES 10/07/17 13:20 Neutrophils (Manual) 68 % (40-80) 10/07/17 13:20 Lymphocytes 18 % (20-50) L 10/07/17 13:20 Monocytes 8 % (2-10) 10/07/17 13:20 Eosinophils 2 % (0-5) 10/07/17 13:20 Basophils 4 % (0-3) H 10/07/17 13:20 Platelet Estimate ADEQUATE (NORMAL) 10/07/17 13:20 Sodium 136 mEq/L (136-145) 10/07/17 13:20 Potassium 3.6 mEq/L (3.5-5.1) 10/07/17 13:20 Chloride 98 mEq/L (98-107) 10/07/17 13:20 Carbon Dioxide 28.9 mEq/L (21.0-31.0) 10/07/17 13:20 Anion Gap 12.7 (7.0-16.0) 10/07/17 13:20 BUN 16 mg/dL (7-25) 10/07/17 13:20 Creatinine 0.8 mg/dL (0.6-1.2) 10/07/17 13:20 Est GFR ( Amer) TNP 10/07/17 13:20 Est GFR (Non-Af Amer) TNP 10/07/17 13:20 BUN/Creatinine Ratio 20.0 10/07/17 13:20 Glucose 90 mg/dL (70-105) 10/07/17 13:20 Hemoglobin A1c % 6.4 % (4.0-6.0) H 10/07/17 13:20 Calcium 10.2 mg/dL (8.6-10.3) 10/07/17 13:20 Total Bilirubin 0.6 mg/dL (0.3-1.0) 10/07/17 13:20 AST 21 U/L (13-39) 10/07/17 13:20 ALT 11 U/L (7-52) 10/07/17 13:20 Alkaline Phosphatase 120 U/L (34-104) H 10/07/17 13:20 Total Protein 7.4 gm/dL (6.0-8.3) 10/07/17 13:20 Albumin 3.9 gm/dL (3.7-5.3) 10/07/17 13:20 Globulin 3.5 gm/dL 10/07/17 13:20 Albumin/Globulin Ratio 1.1 (1.0-1.8) 10/07/17 13:20 Triglycerides 91 mg/dL (<150) 10/07/17 13:20 Cholesterol 302 mg/dL (<200) H 10/07/17 13:20 LDL Cholesterol Direct 151 mg/dL (75-193) 10/07/17 13:20 HDL Cholesterol 106 mg/dL (23-92) H 10/07/17 13:20 TSH 1.63 uIU/ml (0.34-5.60) 10/07/17 13:20 Urine Source CLEAN C 10/07/17 13:00 Urine Color YELLOW 10/07/17 13:00 Urine Clarity CLEAR (CLEAR) 10/07/17 13:00 Urine pH 6.0 (4.6 - 8.0) 10/07/17 13:00 Ur Specific [place] 1.015 (1.005-1.030) 10/07/17 13:00 Urine Protein 30 mg/dL (NEGATIVE) H 10/07/17 13:00 Urine Glucose (UA) NEGATIVE mg/dL (NEGATIVE) 10/07/17 13:00 Urine Ketones NEGATIVE mg/dL (NEGATIVE) 10/07/17 13:00 Urine Blood SMALL (NEGATIVE) H 10/07/17 13:00 Urine Nitrate NEGATIVE (NEGATIVE) 10/07/17 13:00 Urine Bilirubin NEGATIVE (NEGATIVE) 10/07/17 13:00 Urine Urobilinogen 0.2 E.U./dL (0.2 - 1.0) 10/07/17 13:00 Ur Leukocyte Esterase NEGATIVE (NEGATIVE) 10/07/17 13:00 Urine RBC 0-2 /hpf (0-5) 10/07/17 13:00 Urine WBC 0-2 /hpf (0-5) 10/07/17 13:00 Ur Epithelial Cells FEW /lpf (FEW) 10/07/17 13:00 Urine Bacteria NONE SEEN /hpf (NONE SEEN) 10/07/17 13:00 Salicylates < 25.0 mg/L (30.0-100.0) L 10/07/17 13:20 Urine Opiates Screen NEGATIVE (NEGATIVE) 10/07/17 13:00 Urine Methadone Screen NEGATIVE (NEGATIVE) 10/07/17 13:00 Acetaminophen < 10.0 ug/mL (10.0-30.0) L 10/07/17 13:20 Ur Barbiturates Screen NEGATIVE (NEGATIVE) 10/07/17 13:00 Ur Tricyclics Screen NEGATIVE (NEGATIVE) 10/07/17 13:00 Ur Phencyclidine Scrn NEGATIVE (NEGATIVE) 10/07/17 13:00 Amphetamines Screen NEGATIVE (NEGATIVE) 10/07/17 13:00 U Methamphetamines Scrn NEGATIVE (NEGATIVE) 10/07/17 13:00 U Benzodiazepines Scrn NEGATIVE (NEGATIVE) 10/07/17 13:00 U Cocaine Metab Screen NEGATIVE (NEGATIVE) 10/07/17 13:00 U Cannabinoids Screen NEGATIVE (NEGATIVE) 10/07/17 13:00 Ethyl Alcohol < 10 mg/dL (0-10) 10/07/17 13:20 RPR NONREACTIVE (NONREACTIVE) 10/07/17 13:20 - Physical Exam Vitals and I&O: Vital Signs Temp 97.2 F 07/19/18 14:00 Pulse 87 10/14/17 14:00 Resp 18 10/14/17 14:00 BP 119/74 10/14/17 14:00 Pulse Ox 98 10/14/17 14:00 Active Medications: Current Medications Acetaminophen (Tylenol) 650 mg PO Q4HR PRN PRN Reason: Mild Pain / Temp above 100 Stop: 12/06/17 18:40 Al Hydrox/Mg Hydrox/Simethicone (Maalox) 30 ml PO Q4HR PRN PRN Reason: GI DISTRESS Stop: 12/06/17 18:40 Atorvastatin Calcium (Lipitor) 40 mg PO HS [facility] Stop: 12/06/17 20:59 Last Admin: 10/14/17 20:24 Dose: 40 mg Cyanocobalamin (Vitamin B12) 1,000 mcg PO DAILY [facility] Stop: 12/07/17 08:59 Last Admin: 10/14/17 09:18 Dose: 1,000 mcg Ferrous Sulfate (Iron) 325 mg PO DAILY [facility] Stop: 12/07/17 08:59 Last Admin: 10/14/17 09:18 Dose: 325 mg Losartan Potassium (Cozaar) 100 mg PO DAILY [facility] Stop: 12/07/17 08:59 Last Admin: 10/14/17 09:27 Dose: 50 mg Magnesium Hydroxide (Milk Of Magnesia) 30 ml PO HS PRN PRN Reason: Constipation Multivitamins/Vitamin C (Theragran) 1 tab PO DAILY [facility] Stop: 12/07/17 08:59 Last Admin: 10/14/17 10:00 Dose: 1 tab Quetiapine Fumarate (Seroquel) 12.5 mg PO DAILY [facility]; Protocol Stop: 12/12/17 08:59 Last Admin: 10/14/17 10:00 Dose: 12.5 mg Quetiapine Fumarate (Seroquel) 25 mg PO HS [facility]; Protocol Stop: 12/12/17 20:59 Last Admin: 10/14/17 20:25 Dose: 25 mg Vitamin D (Vitamin D3) 2,000 iu PO DAILY [facility] Stop: 12/07/17 08:59 Last Admin: 10/14/17 09:18 Dose: 2,000 iu General: demented HEENT: NC/AT, PERRLA, anicteric sclerae, throat clear Neck: Supple, No JVD, No thyromegaly, +2 carotid pulse wo bruit, No LAD Lungs: CTAB Cardiovascular: RRR, Normal S1, Normal S2, without murmur Abdomen: non-tender, non-distended Extremities: clear Neurological: no change Internal Medicine Assmt/Plan - Assessment Assessment: 1.HTN. 2.HYPERLIPIDEMIA. 3.ANEMIA. 4.DEMENTIA. - Plan Plan: CONTINUE ON CURRENT MEDICATION AND DIET Nutritional Asmnt/Malnutr-PDOC - Dietary Evaluation Malnutrition Findings (Please click <Entered> for more info): Nutritional Asmnt/Malnutrition Start: 10/11/17 14: 34 Text: Status: Complete Freq: Protocol: Document 10/11/17 14:34 DYLAN (Rec: 10/11/17 14:44 DYLAN [id number]) Nutritional Asmnt/Malnutrition Patient General Information Nutritional Screening Moderate Risk Diagnosis psychosis Pertinent Medical Hx/Surgical Hx HTN, hyperlipidemia, DJD, dementia Subjective Information Pt seen in amando-chair in the hallway, talkative and confused. PO intake 75-100% of meals. Current Diet Order/ Nutrition Support PRICE, low fat Pertinent Medications vit B12, Iron, theragran, seroquel, vit D3 Pertinent Labs 10/07 glucose 90, A1c 6.4 Nutritional Hx/Data Height 1.57 m Height (Calculated Centimeters) 157.5 Current Weight (lbs) 45.359 kg Weight (Calculated Kilograms) 45.4 Weight (Calculated Grams) 50860.2 [place] Body Weight 110 Body Mass Index (BMI) 18.3 Weight Status Underweight GI Symptoms GI Symptoms None Last BM 10/07 Difficult in: None Skin Integrity/Comment: carlos score 19 Current %PO Good (75-100%) Estimated Nutritional Goals BEE in Kcals: Using Current wt Calories/Kcals/Kg 25-30 Kcals Calculated 1155-8667 Protein: Using Current wt Protein g/k-1.2 Protein Calculated 45-54 Fluid: ml 1125-1350ml (1ml/kcal) Nutritional Problem No current Nutrition Prob Problem N/A Malnutrition Alert Is there a minimum of two criteria No selected? Query Text:Check all the applicable criteria. A minimum of two criteria are recommended for diagnosis of either severe or non-severe malnutrition. Malnutrition Related to Morbid Obesity Malnutrition related to morbid obesity No Intervention/Recommendation Comments 1. Continue with PRICE, low fat diet as ordered. Monitor glucose level. 2. Monitor PO intake, wt, labs and skin integrity 3. F/U as low risk in 7 days, 10/18 Expected Outcomes/Goals Expected Outcomes/Goals 1. PO intake to meet at least 75% of nutritional needs. 2. Wt stability, skin to remain intact, labs to approach WNL.
[2017-10-15] MEDS: Multivitamin Tab PO SCH (09:08)
[2017-10-15] MEDS: Ferrous Sulfate 325 MG TAB PO SCH (09:08)
[2017-10-15] MEDS: Vitamin D3 2,000 IU SGL PO SCH (09:09)
--- NOTE | 2017-10-15 11:10 | Diagnostic Imaging Report ---
Exam: CT examination of brain HISTORY: Subarachnoid hemorrhage Total DLP equals 385 CTDI equals 31.9 Findings: Multiple contiguous thin section of the brain were obtained from base of skull to the vertex without administration contrast material, study correlated with prior study 10/14/2017 The study again demonstrates small amount of subarachnoid blood collection in the left the frontal lobe. Again noted diffuse degenerative and chronic changes with the prominence of ventricular system throughout. Again noted motion artifact degrading the quality of the study. IMPRESSION: Unchanged ,small subarachnoid hemorrhage in left frontal lobe.
--- NOTE | 2017-10-15 16:48 | Internal Medicine Prog Note ---
Internal Medicine Subjective - Subjective Service Date: 10/15/17 Patient seen and examined:: with staff (THE PATIENT HAD A FALL LAST NIGHT AND WAS SEEN BY ER PHYSICIAN.CT OF HEAD SIGNIFICANT FOR SMALL LEFT FRONTAL LOBE SUBARACHNOID HGE.) Patient is:: awake, verbal, in bed, confused Per staff patient has:: no adverse event Internal Medicine Objective - Results Result Diagrams: 10/07/17 13:20 10/07/17 13:20 Recent Labs: Laboratory Last Values WBC 7.4 Th/cmm (4.8-10.8) 10/07/17 13:20 RBC 3.79 Mil/cmm (3.80-5.20) L 10/07/17 13:20 Hgb 11.5 gm/dL (12-16) L 10/07/17 13:20 Hct 34.2 % (41.0-60) L 10/07/17 13:20 MCV 90.2 fl (81-100) 10/07/17 13:20 MCH 30.2 pg (27.0-31.0) 10/07/17 13:20 MCHC Differential 33.5 pg (28.0-36.0) 10/07/17 13:20 RDW 15.1 % (11.5-20.0) 10/07/17 13:20 Plt Count 362 Th/cmm (150-400) 10/07/17 13:20 MPV 7.0 fl 10/07/17 13:20 Add Manual Diff YES 10/07/17 13:20 Neutrophils (Manual) 68 % (40-80) 10/07/17 13:20 Lymphocytes 18 % (20-50) L 10/07/17 13:20 Monocytes 8 % (2-10) 10/07/17 13:20 Eosinophils 2 % (0-5) 10/07/17 13:20 Basophils 4 % (0-3) H 10/07/17 13:20 Platelet Estimate ADEQUATE (NORMAL) 10/07/17 13:20 Sodium 136 mEq/L (136-145) 10/07/17 13:20 Potassium 3.6 mEq/L (3.5-5.1) 10/07/17 13:20 Chloride 98 mEq/L (98-107) 10/07/17 13:20 Carbon Dioxide 28.9 mEq/L (21.0-31.0) 10/07/17 13:20 Anion Gap 12.7 (7.0-16.0) 10/07/17 13:20 BUN 16 mg/dL (7-25) 10/07/17 13:20 Creatinine 0.8 mg/dL (0.6-1.2) 10/07/17 13:20 Est GFR ( Amer) TNP 10/07/17 13:20 Est GFR (Non-Af Amer) TNP 10/07/17 13:20 BUN/Creatinine Ratio 20.0 10/07/17 13:20 Glucose 90 mg/dL (70-105) 10/07/17 13:20 Hemoglobin A1c % 6.4 % (4.0-6.0) H 10/07/17 13:20 Calcium 10.2 mg/dL (8.6-10.3) 10/07/17 13:20 Total Bilirubin 0.6 mg/dL (0.3-1.0) 10/07/17 13:20 AST 21 U/L (13-39) 10/07/17 13:20 ALT 11 U/L (7-52) 10/07/17 13:20 Alkaline Phosphatase 120 U/L (34-104) H 10/07/17 13:20 Total Protein 7.4 gm/dL (6.0-8.3) 10/07/17 13:20 Albumin 3.9 gm/dL (3.7-5.3) 10/07/17 13:20 Globulin 3.5 gm/dL 10/07/17 13:20 Albumin/Globulin Ratio 1.1 (1.0-1.8) 10/07/17 13:20 Triglycerides 91 mg/dL (<150) 10/07/17 13:20 Cholesterol 302 mg/dL (<200) H 10/07/17 13:20 LDL Cholesterol Direct 151 mg/dL (75-193) 10/07/17 13:20 HDL Cholesterol 106 mg/dL (23-92) H 10/07/17 13:20 TSH 1.63 uIU/ml (0.34-5.60) 10/07/17 13:20 Urine Source CLEAN C 10/07/17 13:00 Urine Color YELLOW 10/07/17 13:00 Urine Clarity CLEAR (CLEAR) 10/07/17 13:00 Urine pH 6.0 (4.6 - 8.0) 10/07/17 13:00 Ur Specific [place] 1.015 (1.005-1.030) 10/07/17 13:00 Urine Protein 30 mg/dL (NEGATIVE) H 10/07/17 13:00 Urine Glucose (UA) NEGATIVE mg/dL (NEGATIVE) 10/07/17 13:00 Urine Ketones NEGATIVE mg/dL (NEGATIVE) 10/07/17 13:00 Urine Blood SMALL (NEGATIVE) H 10/07/17 13:00 Urine Nitrate NEGATIVE (NEGATIVE) 10/07/17 13:00 Urine Bilirubin NEGATIVE (NEGATIVE) 10/07/17 13:00 Urine Urobilinogen 0.2 E.U./dL (0.2 - 1.0) 10/07/17 13:00 Ur Leukocyte Esterase NEGATIVE (NEGATIVE) 10/07/17 13:00 Urine RBC 0-2 /hpf (0-5) 10/07/17 13:00 Urine WBC 0-2 /hpf (0-5) 10/07/17 13:00 Ur Epithelial Cells FEW /lpf (FEW) 10/07/17 13:00 Urine Bacteria NONE SEEN /hpf (NONE SEEN) 10/07/17 13:00 Salicylates < 25.0 mg/L (30.0-100.0) L 10/07/17 13:20 Urine Opiates Screen NEGATIVE (NEGATIVE) 10/07/17 13:00 Urine Methadone Screen NEGATIVE (NEGATIVE) 10/07/17 13:00 Acetaminophen < 10.0 ug/mL (10.0-30.0) L 10/07/17 13:20 Ur Barbiturates Screen NEGATIVE (NEGATIVE) 10/07/17 13:00 Ur Tricyclics Screen NEGATIVE (NEGATIVE) 10/07/17 13:00 Ur Phencyclidine Scrn NEGATIVE (NEGATIVE) 10/07/17 13:00 Amphetamines Screen NEGATIVE (NEGATIVE) 10/07/17 13:00 U Methamphetamines Scrn NEGATIVE (NEGATIVE) 10/07/17 13:00 U Benzodiazepines Scrn NEGATIVE (NEGATIVE) 10/07/17 13:00 U Cocaine Metab Screen NEGATIVE (NEGATIVE) 10/07/17 13:00 U Cannabinoids Screen NEGATIVE (NEGATIVE) 10/07/17 13:00 Ethyl Alcohol < 10 mg/dL (0-10) 07/12/18 13:20 RPR NONREACTIVE (NONREACTIVE) 10/07/17 13:20 - Physical Exam Vitals and I&O: Vital Signs Temp 98.5 F 10/15/17 16:43 Pulse 86 10/15/17 16:43 Resp 18 10/15/17 16:43 BP 128/102 10/15/17 16:43 Pulse Ox 98 10/15/17 16:43 Intake & Output 10/14/17 10/15/17 10/15/17 18:59 06:59 18:59 Intake Total 750 Balance 750 Intake: Oral 750 Other: # Voids 2 # Bowel Movements 0 Active Medications: Current Medications Acetaminophen (Tylenol) 650 mg PO Q4HR PRN PRN Reason: Mild Pain / Temp above 100 Stop: 12/06/17 18:40 Al Hydrox/Mg Hydrox/Simethicone (Maalox) 30 ml PO Q4HR PRN PRN Reason: GI DISTRESS Stop: 12/06/17 18:40 Atorvastatin Calcium (Lipitor) 40 mg PO HS [facility] Stop: 12/06/17 20:59 Last Admin: 10/14/17 20:24 Dose: 40 mg Cyanocobalamin (Vitamin B12) 1,000 mcg PO DAILY [facility] Stop: 12/07/17 08:59 Last Admin: 10/15/17 09:06 Dose: 1,000 mcg Ferrous Sulfate (Iron) 325 mg PO DAILY [facility] Stop: 12/07/17 08:59 Last Admin: 10/15/17 09:08 Dose: 325 mg Losartan Potassium (Cozaar) 100 mg PO DAILY [facility] Stop: 12/07/17 08:59 Last Admin: 10/15/17 09:08 Dose: 100 mg Magnesium Hydroxide (Milk Of Magnesia) 30 ml PO HS PRN PRN Reason: Constipation Multivitamins/Vitamin C (Theragran) 1 tab PO DAILY [facility] Stop: 12/07/17 08:59 Last Admin: 10/15/17 09:08 Dose: 1 tab Quetiapine Fumarate (Seroquel) 12.5 mg PO DAILY [facility]; Protocol Stop: 12/12/17 08:59 Last Admin: 10/15/17 09:07 Dose: 12.5 mg Quetiapine Fumarate (Seroquel) 12.5 mg PO HS [facility]; Protocol Stop: 12/14/17 20:59 Vitamin D (Vitamin D3) 2,000 iu PO DAILY [facility] Stop: 12/07/17 08:59 Last Admin: 10/15/17 09:09 Dose: 2,000 iu General: demented HEENT: NC/AT, PERRLA, anicteric sclerae, throat clear Neck: Supple, No JVD, No thyromegaly, +2 carotid pulse wo bruit, No LAD Lungs: CTAB Cardiovascular: RRR, Normal S1, Normal S2, without murmur Abdomen: non-tender, non-distended Extremities: clear Neurological: no change Internal Medicine Assmt/Plan - Assessment Assessment: 1.HTN. 2.HYPERLIPIDEMIA. 3.ANEMIA. 4.DEMENTIA. 5.LEFT FRONTAL LOBE SUBARACHNOID HGE. - Plan Plan: CONTINUE ON CURRENT MEDICATION AND DIET Nutritional Asmnt/Malnutr-PDOC - Dietary Evaluation Malnutrition Findings (Please click <Entered> for more info): Nutritional Asmnt/Malnutrition Start: 10/11/17 14: 34 Text: Status: Complete Freq: Protocol: Document 10/11/17 14:34 DYLAN (Rec: 10/11/17 14:44 DYLAN [email or web address]) Nutritional Asmnt/Malnutrition Patient General Information Nutritional Screening Moderate Risk Diagnosis psychosis Pertinent Medical Hx/Surgical Hx HTN, hyperlipidemia, DJD, dementia Subjective Information Pt seen in amando-chair in the hallway, talkative and confused. PO intake 75-100% of meals. Current Diet Order/ Nutrition Support PRICE, low fat Pertinent Medications vit B12, Iron, theragran, seroquel, vit D3 Pertinent Labs 10/07 glucose 90, A1c 6.4 Nutritional Hx/Data Height 1.57 m Height (Calculated Centimeters) 157.5 Current Weight (lbs) 45.359 kg Weight (Calculated Kilograms) 45.4 Weight (Calculated Grams) 00799.2 [place] Body Weight 110 Body Mass Index (BMI) 18.3 Weight Status Underweight GI Symptoms GI Symptoms None Last BM 10/07 Difficult in: None Skin Integrity/Comment: carlos score 19 Current %PO Good (75-100%) Estimated Nutritional Goals BEE in Kcals: Using Current wt Calories/Kcals/Kg 25-30 Kcals Calculated 0905-2881 Protein: Using Current wt Protein g/k-1.2 Protein Calculated 45-54 Fluid: ml 1125-1350ml (1ml/kcal) Nutritional Problem No current Nutrition Prob Problem N/A Malnutrition Alert Is there a minimum of two criteria No selected? Query Text:Check all the applicable criteria. A minimum of two criteria are recommended for diagnosis of either severe or non-severe malnutrition. Malnutrition Related to Morbid Obesity Malnutrition related to morbid obesity No Intervention/Recommendation Comments 1. Continue with PRICE, low fat diet as ordered. Monitor glucose level. 2. Monitor PO intake, wt, labs and skin integrity 3. F/U as low risk in 7 days, 10/18 Expected Outcomes/Goals Expected Outcomes/Goals 1. PO intake to meet at least 75% of nutritional needs. 2. Wt stability, skin to remain intact, labs to approach WNL.
--- NOTE | 2017-10-15 20:42 | Progress Notes ---
DATE: 10/14/2017 SUBJECTIVE: Chart reviewed and the patient interviewed. Also discussed the patient's condition with the staff and reviewed records and labs. The patient is still anxious and is still confused. The patient also is still restless. She also is interacting minimally with others. The patient also needs lots of redirections. Otherwise, the patient is compliant with taking her medications with no side effects of medications. ASSESSMENT: The patient is still confused and needs lots of redirections. TREATMENT PLAN: We will continue to monitor her behavior and condition closely. Also, continue adjusting psychotropic medications. Also planning to call the insurance company for placement issue and of the patient. JOB# [id number]
[2017-10-16] MEDS: Ferrous Sulfate 325 MG TAB PO SCH (09:07)
[2017-10-16] MEDS: Vitamin D3 2,000 IU SGL PO SCH (09:08)
[2017-10-16] MEDS: Multivitamin Tab PO SCH (09:09)
--- NOTE | 2017-10-16 16:13 | General Progress Note ---
Subjective - Review of Systems Service Date: 10/16/17 Subjective: sitting comfortably in chair awake and responsive, confused no distress Objective - Results Result Diagrams: 10/07/17 13:20 10/07/17 13:20 Recent Labs: Laboratory Last Values WBC 7.4 Th/cmm (4.8-10.8) 10/07/17 13:20 RBC 3.79 Mil/cmm (3.80-5.20) L 10/07/17 13:20 Hgb 11.5 gm/dL (12-16) L 10/07/17 13:20 Hct 34.2 % (41.0-60) L 10/07/17 13:20 MCV 90.2 fl (81-100) 10/07/17 13:20 MCH 30.2 pg (27.0-31.0) 10/07/17 13:20 MCHC Differential 33.5 pg (28.0-36.0) 10/07/17 13:20 RDW 15.1 % (11.5-20.0) 10/07/17 13:20 Plt Count 362 Th/cmm (150-400) 10/07/17 13:20 MPV 7.0 fl 10/07/17 13:20 Add Manual Diff YES 10/07/17 13:20 Neutrophils (Manual) 68 % (40-80) 10/07/17 13:20 Lymphocytes 18 % (20-50) L 10/07/17 13:20 Monocytes 8 % (2-10) 10/07/17 13:20 Eosinophils 2 % (0-5) 10/07/17 13:20 Basophils 4 % (0-3) H 10/07/17 13:20 Platelet Estimate ADEQUATE (NORMAL) 10/07/17 13:20 Sodium 136 mEq/L (136-145) 10/07/17 13:20 Potassium 3.6 mEq/L (3.5-5.1) 10/07/17 13:20 Chloride 98 mEq/L (98-107) 10/07/17 13:20 Carbon Dioxide 28.9 mEq/L (21.0-31.0) 10/07/17 13:20 Anion Gap 12.7 (7.0-16.0) 10/07/17 13:20 BUN 16 mg/dL (7-25) 10/07/17 13:20 Creatinine 0.8 mg/dL (0.6-1.2) 10/07/17 13:20 Est GFR ( Amer) TNP 10/07/17 13:20 Est GFR (Non-Af Amer) TNP 10/07/17 13:20 BUN/Creatinine Ratio 20.0 10/07/17 13:20 Glucose 90 mg/dL (70-105) 10/07/17 13:20 Hemoglobin A1c % 6.4 % (4.0-6.0) H 10/07/17 13:20 Calcium 10.2 mg/dL (8.6-10.3) 10/07/17 13:20 Total Bilirubin 0.6 mg/dL (0.3-1.0) 10/07/17 13:20 AST 21 U/L (13-39) 10/07/17 13:20 ALT 11 U/L (7-52) 10/07/17 13:20 Alkaline Phosphatase 120 U/L (34-104) H 10/07/17 13:20 Total Protein 7.4 gm/dL (6.0-8.3) 10/07/17 13:20 Albumin 3.9 gm/dL (3.7-5.3) 10/07/17 13:20 Globulin 3.5 gm/dL 10/07/17 13:20 Albumin/Globulin Ratio 1.1 (1.0-1.8) 10/07/17 13:20 Triglycerides 91 mg/dL (<150) 10/07/17 13:20 Cholesterol 302 mg/dL (<200) H 10/07/17 13:20 LDL Cholesterol Direct 151 mg/dL (75-193) 10/07/17 13:20 HDL Cholesterol 106 mg/dL (23-92) H 10/07/17 13:20 TSH 1.63 uIU/ml (0.34-5.60) 10/07/17 13:20 Urine Source CLEAN C 10/07/17 13:00 Urine Color YELLOW 10/07/17 13:00 Urine Clarity CLEAR (CLEAR) 10/07/17 13:00 Urine pH 6.0 (4.6 - 8.0) 10/07/17 13:00 Ur Specific [place] 1.015 (1.005-1.030) 10/07/17 13:00 Urine Protein 30 mg/dL (NEGATIVE) H 10/07/17 13:00 Urine Glucose (UA) NEGATIVE mg/dL (NEGATIVE) 10/07/17 13:00 Urine Ketones NEGATIVE mg/dL (NEGATIVE) 10/07/17 13:00 Urine Blood SMALL (NEGATIVE) H 10/07/17 13:00 Urine Nitrate NEGATIVE (NEGATIVE) 10/07/17 13:00 Urine Bilirubin NEGATIVE (NEGATIVE) 10/07/17 13:00 Urine Urobilinogen 0.2 E.U./dL (0.2 - 1.0) 10/07/17 13:00 Ur Leukocyte Esterase NEGATIVE (NEGATIVE) 10/07/17 13:00 Urine RBC 0-2 /hpf (0-5) 10/07/17 13:00 Urine WBC 0-2 /hpf (0-5) 10/07/17 13:00 Ur Epithelial Cells FEW /lpf (FEW) 10/07/17 13:00 Urine Bacteria NONE SEEN /hpf (NONE SEEN) 10/07/17 13:00 Salicylates < 25.0 mg/L (30.0-100.0) L 10/07/17 13:20 Urine Opiates Screen NEGATIVE (NEGATIVE) 10/07/17 13:00 Urine Methadone Screen NEGATIVE (NEGATIVE) 10/07/17 13:00 Acetaminophen < 10.0 ug/mL (10.0-30.0) L 10/07/17 13:20 Ur Barbiturates Screen NEGATIVE (NEGATIVE) 10/07/17 13:00 Ur Tricyclics Screen NEGATIVE (NEGATIVE) 10/07/17 13:00 Ur Phencyclidine Scrn NEGATIVE (NEGATIVE) 10/07/17 13:00 Amphetamines Screen NEGATIVE (NEGATIVE) 10/07/17 13:00 U Methamphetamines Scrn NEGATIVE (NEGATIVE) 10/07/17 13:00 U Benzodiazepines Scrn NEGATIVE (NEGATIVE) 10/07/17 13:00 U Cocaine Metab Screen NEGATIVE (NEGATIVE) 10/07/17 13:00 U Cannabinoids Screen NEGATIVE (NEGATIVE) 10/07/17 13:00 Ethyl Alcohol < 10 mg/dL (0-10) 10/07/17 13:20 RPR NONREACTIVE (NONREACTIVE) 10/07/17 13:20 - Physical Exam Vitals and I&O: Vital Signs Temp 99.3 F 10/16/17 07:03 Pulse 108 10/16/17 09:07 Resp 20 10/16/17 07:03 BP 142/78 10/16/17 09:07 Pulse Ox 98 10/16/17 07:03 Intake & Output 10/15/17 10/16/17 10/16/17 18:59 06:59 18:59 Intake Total 240 Balance 240 Weight (lbs) 45.359 kg Intake: Oral 240 Other: # Voids 3 # Bowel Movements 0 Weight Source Bedscale Active Medications: Current Medications Acetaminophen (Tylenol) 650 mg PO Q4HR PRN PRN Reason: Mild Pain / Temp above 100 Stop: 12/06/17 18:40 Last Admin: 10/16/17 15:19 Dose: 650 mg Al Hydrox/Mg Hydrox/Simethicone (Maalox) 30 ml PO Q4HR PRN PRN Reason: GI DISTRESS Stop: 12/06/17 18:40 Atorvastatin Calcium (Lipitor) 40 mg PO HS [facility] Stop: 12/06/17 20:59 Last Admin: 10/15/17 21:16 Dose: 40 mg Cyanocobalamin (Vitamin B12) 1,000 mcg PO DAILY [facility] Stop: 12/07/17 08:59 Last Admin: 10/16/17 09:07 Dose: 1,000 mcg Ferrous Sulfate (Iron) 325 mg PO DAILY [facility] Stop: 12/07/17 08:59 Last Admin: 10/16/17 09:07 Dose: 325 mg Losartan Potassium (Cozaar) 100 mg PO DAILY [facility] Stop: 12/07/17 08:59 Last Admin: 10/16/17 09:07 Dose: 100 mg Magnesium Hydroxide (Milk Of Magnesia) 30 ml PO HS PRN PRN Reason: Constipation Multivitamins/Vitamin C (Theragran) 1 tab PO DAILY [facility] Stop: 12/07/17 08:59 Last Admin: 10/16/17 09:09 Dose: 1 tab Quetiapine Fumarate (Seroquel) 12.5 mg PO DAILY [facility]; Protocol Stop: 12/12/17 08:59 Last Admin: 10/16/17 09:09 Dose: 12.5 mg Quetiapine Fumarate (Seroquel) 12.5 mg PO HS [facility]; Protocol Stop: 12/14/17 20:59 Last Admin: 10/15/17 21:19 Dose: 12.5 mg Vitamin D (Vitamin D3) 2,000 iu PO DAILY [facility] Stop: 12/07/17 08:59 Last Admin: 10/16/17 09:08 Dose: 2,000 iu General: No acute distress HEENT: Atraumatic, PERRLA Neck: Supple, JVD Cardiovascular: Regular rate, Normal S1, Normal S2 Lungs: Clear to auscultation Abdomen: Bowel sounds, Soft Neurological: Normal tone, Cranial nerves 3-12 NL, Other (NO LATERALING SIGNS) Assessment/Plan - Problem List Patient Problems: All Active Problems 51 50 STATUS (DANGER TO OTHERS) (Acute) - Assessment Assessment: 1.HTN. 2.HYPERLIPIDEMIA. 3.ANEMIA. 4.DEMENTIA. 5.LEFT FRONTAL LOBE SUBARACHNOID HGE. 6.SCALP LACERATION - Plan Plan: CONTINUE CURRENT TREATMENT Nutritional Asmnt/Malnutr-PDOC - Dietary Evaluation Malnutrition Findings (Please click <Entered> for more info): Nutritional Asmnt/Malnutrition Start: 10/11/17 14: 34 Text: Status: Complete Freq: Protocol: Document 10/11/17 14:34 DYLAN (Rec: 10/11/17 14:44 DYLAN [email or web address]) Nutritional Asmnt/Malnutrition Patient General Information Nutritional Screening Moderate Risk Diagnosis psychosis Pertinent Medical Hx/Surgical Hx HTN, hyperlipidemia, DJD, dementia Subjective Information Pt seen in amando-chair in the hallway, talkative and confused. PO intake 75-100% of meals. Current Diet Order/ Nutrition Support PRICE, low fat Pertinent Medications vit B12, Iron, theragran, seroquel, vit D3 Pertinent Labs 10/07 glucose 90, A1c 6.4 Nutritional Hx/Data Height 1.57 m Height (Calculated Centimeters) 157.5 Current Weight (lbs) 45.359 kg Weight (Calculated Kilograms) 45.4 Weight (Calculated Grams) 63537.2 [place] Body Weight 110 Body Mass Index (BMI) 18.3 Weight Status Underweight GI Symptoms GI Symptoms None Last BM 10/07 Difficult in: None Skin Integrity/Comment: carlos score 19 Current %PO Good (75-100%) Estimated Nutritional Goals BEE in Kcals: Using Current wt Calories/Kcals/Kg 25-30 Kcals Calculated 5997-9779 Protein: Using Current wt Protein g/k-1.2 Protein Calculated 45-54 Fluid: ml 1125-1350ml (1ml/kcal) Nutritional Problem No current Nutrition Prob Problem N/A Malnutrition Alert Is there a minimum of two criteria No selected? Query Text:Check all the applicable criteria. A minimum of two criteria are recommended for diagnosis of either severe or non-severe malnutrition. Malnutrition Related to Morbid Obesity Malnutrition related to morbid obesity No Intervention/Recommendation Comments 1. Continue with PRICE, low fat diet as ordered. Monitor glucose level. 2. Monitor PO intake, wt, labs and skin integrity 3. F/U as low risk in 7 days, 10/18 Expected Outcomes/Goals Expected Outcomes/Goals 1. PO intake to meet at least 75% of nutritional needs. 2. Wt stability, skin to remain intact, labs to approach WNL.
[2017-10-17] MEDS: Multivitamin Tab PO SCH (09:16)
[2017-10-17] MEDS: Ferrous Sulfate 325 MG TAB PO SCH (09:16)
[2017-10-17] MEDS: Vitamin D3 2,000 IU SGL PO SCH (09:17)
--- NOTE | 2017-10-17 18:07 | General Progress Note ---
Subjective - Review of Systems Service Date: 10/17/17 Subjective: sitting comfortably in chair awake and responsive, confused no distress Objective - Results Result Diagrams: 10/07/17 13:20 10/07/17 13:20 Recent Labs: Laboratory Last Values WBC 7.4 Th/cmm (4.8-10.8) 10/07/17 13:20 RBC 3.79 Mil/cmm (3.80-5.20) L 10/07/17 13:20 Hgb 11.5 gm/dL (12-16) L 10/07/17 13:20 Hct 34.2 % (41.0-60) L 10/07/17 13:20 MCV 90.2 fl (81-100) 10/07/17 13:20 MCH 30.2 pg (27.0-31.0) 10/07/17 13:20 MCHC Differential 33.5 pg (28.0-36.0) 10/07/17 13:20 RDW 15.1 % (11.5-20.0) 10/07/17 13:20 Plt Count 362 Th/cmm (150-400) 10/07/17 13:20 MPV 7.0 fl 10/07/17 13:20 Add Manual Diff YES 10/07/17 13:20 Neutrophils (Manual) 68 % (40-80) 10/07/17 13:20 Lymphocytes 18 % (20-50) L 10/07/17 13:20 Monocytes 8 % (2-10) 10/07/17 13:20 Eosinophils 2 % (0-5) 10/07/17 13:20 Basophils 4 % (0-3) H 10/07/17 13:20 Platelet Estimate ADEQUATE (NORMAL) 10/07/17 13:20 Sodium 136 mEq/L (136-145) 10/07/17 13:20 Potassium 3.6 mEq/L (3.5-5.1) 10/07/17 13:20 Chloride 98 mEq/L (98-107) 10/07/17 13:20 Carbon Dioxide 28.9 mEq/L (21.0-31.0) 10/07/17 13:20 Anion Gap 12.7 (7.0-16.0) 10/07/17 13:20 BUN 16 mg/dL (7-25) 10/07/17 13:20 Creatinine 0.8 mg/dL (0.6-1.2) 10/07/17 13:20 Est GFR ( Amer) TNP 10/07/17 13:20 Est GFR (Non-Af Amer) TNP 10/07/17 13:20 BUN/Creatinine Ratio 20.0 10/07/17 13:20 Glucose 90 mg/dL (70-105) 10/07/17 13:20 Hemoglobin A1c % 6.4 % (4.0-6.0) H 10/07/17 13:20 Calcium 10.2 mg/dL (8.6-10.3) 10/07/17 13:20 Total Bilirubin 0.6 mg/dL (0.3-1.0) 10/07/17 13:20 AST 21 U/L (13-39) 10/07/17 13:20 ALT 11 U/L (7-52) 10/07/17 13:20 Alkaline Phosphatase 120 U/L (34-104) H 10/07/17 13:20 Total Protein 7.4 gm/dL (6.0-8.3) 10/07/17 13:20 Albumin 3.9 gm/dL (3.7-5.3) 10/07/17 13:20 Globulin 3.5 gm/dL 10/07/17 13:20 Albumin/Globulin Ratio 1.1 (1.0-1.8) 10/07/17 13:20 Triglycerides 91 mg/dL (<150) 10/07/17 13:20 Cholesterol 302 mg/dL (<200) H 10/07/17 13:20 LDL Cholesterol Direct 151 mg/dL (75-193) 10/07/17 13:20 HDL Cholesterol 106 mg/dL (23-92) H 10/07/17 13:20 TSH 1.63 uIU/ml (0.34-5.60) 10/07/17 13:20 Urine Source CLEAN C 10/07/17 13:00 Urine Color YELLOW 10/07/17 13:00 Urine Clarity CLEAR (CLEAR) 10/07/17 13:00 Urine pH 6.0 (4.6 - 8.0) 10/07/17 13:00 Ur Specific [place] 1.015 (1.005-1.030) 10/07/17 13:00 Urine Protein 30 mg/dL (NEGATIVE) H 10/07/17 13:00 Urine Glucose (UA) NEGATIVE mg/dL (NEGATIVE) 10/07/17 13:00 Urine Ketones NEGATIVE mg/dL (NEGATIVE) 10/07/17 13:00 Urine Blood SMALL (NEGATIVE) H 10/07/17 13:00 Urine Nitrate NEGATIVE (NEGATIVE) 10/07/17 13:00 Urine Bilirubin NEGATIVE (NEGATIVE) 10/07/17 13:00 Urine Urobilinogen 0.2 E.U./dL (0.2 - 1.0) 10/07/17 13:00 Ur Leukocyte Esterase NEGATIVE (NEGATIVE) 10/07/17 13:00 Urine RBC 0-2 /hpf (0-5) 10/07/17 13:00 Urine WBC 0-2 /hpf (0-5) 10/07/17 13:00 Ur Epithelial Cells FEW /lpf (FEW) 10/07/17 13:00 Urine Bacteria NONE SEEN /hpf (NONE SEEN) 10/07/17 13:00 Salicylates < 25.0 mg/L (30.0-100.0) L 10/07/17 13:20 Urine Opiates Screen NEGATIVE (NEGATIVE) 10/07/17 13:00 Urine Methadone Screen NEGATIVE (NEGATIVE) 10/07/17 13:00 Acetaminophen < 10.0 ug/mL (10.0-30.0) L 10/07/17 13:20 Ur Barbiturates Screen NEGATIVE (NEGATIVE) 10/07/17 13:00 Ur Tricyclics Screen NEGATIVE (NEGATIVE) 10/07/17 13:00 Ur Phencyclidine Scrn NEGATIVE (NEGATIVE) 10/07/17 13:00 Amphetamines Screen NEGATIVE (NEGATIVE) 10/07/17 13:00 U Methamphetamines Scrn NEGATIVE (NEGATIVE) 10/07/17 13:00 U Benzodiazepines Scrn NEGATIVE (NEGATIVE) 10/07/17 13:00 U Cocaine Metab Screen NEGATIVE (NEGATIVE) 10/07/17 13:00 U Cannabinoids Screen NEGATIVE (NEGATIVE) 10/07/17 13:00 Ethyl Alcohol < 10 mg/dL (0-10) 10/07/17 13:20 RPR NONREACTIVE (NONREACTIVE) 10/07/17 13:20 - Physical Exam Vitals and I&O: Vital Signs Temp 98.1 F 10/17/17 06:49 Pulse 110 10/17/17 09:16 Resp 20 10/17/17 06:49 BP 135/77 10/17/17 09:16 Pulse Ox 97 10/17/17 06:49 Intake & Output 10/16/17 10/17/17 10/17/17 18:59 06:59 18:59 Intake Total 120 Balance 120 Intake: Oral 120 Other: # Voids 2 # Bowel Movements 1 Active Medications: Current Medications Acetaminophen (Tylenol) 650 mg PO Q4HR PRN PRN Reason: Mild Pain / Temp above 100 Stop: 12/06/17 18:40 Last Admin: 10/16/17 15:19 Dose: 650 mg Al Hydrox/Mg Hydrox/Simethicone (Maalox) 30 ml PO Q4HR PRN PRN Reason: GI DISTRESS Stop: 12/06/17 18:40 Atorvastatin Calcium (Lipitor) 40 mg PO HS KIRK Stop: 12/06/17 20:59 Last Admin: 10/16/17 20:44 Dose: 40 mg Cyanocobalamin (Vitamin B12) 1,000 mcg PO DAILY KIRK Stop: 12/07/17 08:59 Last Admin: 10/17/17 09:16 Dose: 1,000 mcg Ferrous Sulfate (Iron) 325 mg PO DAILY [facility]IRK Stop: 12/07/17 08:59 Last Admin: 10/17/17 09:16 Dose: 325 mg Losartan Potassium (Cozaar) 100 mg PO DAILY KIRK Stop: 12/07/17 08:59 Last Admin: 10/17/17 09:16 Dose: 100 mg Magnesium Hydroxide (Milk Of Magnesia) 30 ml PO HS PRN PRN Reason: Constipation Multivitamins/Vitamin C (Theragran) 1 tab PO DAILY KIRK Stop: 12/07/17 08:59 Last Admin: 10/17/17 09:16 Dose: 1 tab Quetiapine Fumarate (Seroquel) 12.5 mg PO DAILY KIRK; Protocol Stop: 12/12/17 08:59 Last Admin: 10/17/17 09:16 Dose: 12.5 mg Quetiapine Fumarate (Seroquel) 12.5 mg PO HS KIRK; Protocol Stop: 12/14/17 20:59 Last Admin: 10/16/17 20:44 Dose: 12.5 mg Vitamin D (Vitamin D3) 2,000 iu PO DAILY KIRK Stop: 12/07/17 08:59 Last Admin: 10/17/17 09:17 Dose: 2,000 iu General: No acute distress HEENT: Atraumatic, PERRLA Neck: Supple, JVD Cardiovascular: Regular rate, Normal S1, Normal S2 Lungs: Clear to auscultation Abdomen: Bowel sounds, Soft Neurological: Normal tone, Cranial nerves 3-12 NL, Other (NO LATERALING SIGNS) Assessment/Plan - Problem List Patient Problems: All Active Problems 51 50 STATUS (DANGER TO OTHERS) (Acute) - Assessment Assessment: 1.HTN. 2.HYPERLIPIDEMIA. 3.ANEMIA. 4.DEMENTIA. 5.LEFT FRONTAL LOBE SUBARACHNOID HGE. 6.SCALP LACERATION - Plan Plan: CONTINUE CURRENT TREATMENT Nutritional Asmnt/Malnutr-PDOC - Dietary Evaluation Malnutrition Findings (Please click <Entered> for more info): Nutritional Asmnt/Malnutrition Start: 10/11/17 14: 34 Text: Status: Complete Freq: Protocol: Document 10/11/17 14:34 DYLAN (Rec: 10/11/17 14:44 DYLAN [email or web address]) Nutritional Asmnt/Malnutrition Patient General Information Nutritional Screening Moderate Risk Diagnosis psychosis Pertinent Medical Hx/Surgical Hx HTN, hyperlipidemia, DJD, dementia Subjective Information Pt seen in amando-chair in the hallway, talkative and confused. PO intake 75-100% of meals. Current Diet Order/ Nutrition Support PRICE, low fat Pertinent Medications vit B12, Iron, theragran, seroquel, vit D3 Pertinent Labs 10/07 glucose 90, A1c 6.4 Nutritional Hx/Data Height 1.57 m Height (Calculated Centimeters) 157.5 Current Weight (lbs) 45.359 kg Weight (Calculated Kilograms) 45.4 Weight (Calculated Grams) 48856.2 [place] Body Weight 110 Body Mass Index (BMI) 18.3 Weight Status Underweight GI Symptoms GI Symptoms None Last BM 10/07 Difficult in: None Skin Integrity/Comment: carlos score 19 Current %PO Good (75-100%) Estimated Nutritional Goals BEE in Kcals: Using Current wt Calories/Kcals/Kg 25-30 Kcals Calculated 3937-2594 Protein: Using Current wt Protein g/k-1.2 Protein Calculated 45-54 Fluid: ml 1125-1350ml (1ml/kcal) Nutritional Problem No current Nutrition Prob Problem N/A Malnutrition Alert Is there a minimum of two criteria No selected? Query Text:Check all the applicable criteria. A minimum of two criteria are recommended for diagnosis of either severe or non-severe malnutrition. Malnutrition Related to Morbid Obesity Malnutrition related to morbid obesity No Intervention/Recommendation Comments 1. Continue with PRICE, low fat diet as ordered. Monitor glucose level. 2. Monitor PO intake, wt, labs and skin integrity 3. F/U as low risk in 7 days, 10/18 Expected Outcomes/Goals Expected Outcomes/Goals 1. PO intake to meet at least 75% of nutritional needs. 2. Wt stability, skin to remain intact, labs to approach WNL.
--- NOTE | 2017-10-17 20:14 | Progress Notes ---
DATE: 10/17/2017 SUBJECTIVE: Chart reviewed and the patient interviewed. Also discussed the patient's condition with the staff and reviewed records and labs. The patient is still in a depressed mood and she is still confused and easily agitated. Also, during my interview, the patient was pounding on the chair and she still has angry and irritable mood and unable to follow directions. She also is easily agitated. Otherwise, no side effects of medications. ASSESSMENT: The patient is still depressed and is still confused. TREATMENT PLAN: Continue to monitor her condition and her behavior. Also discussed with insurance having physical therapy and occupational therapy and ordered to transfer to a nursing facility for further observation and treatment. At the same time, we will continue to monitor behavior and will continue to follow up. JOB# [id number]
[2017-10-18] MEDS: Ferrous Sulfate 325 MG TAB PO SCH (09:25)
[2017-10-18] MEDS: Multivitamin Tab PO SCH (09:26)
[2017-10-18] MEDS: Vitamin D3 2,000 IU SGL PO SCH (09:26)
--- NOTE | 2017-10-18 13:17 | Progress Notes ---
DATE: 10/16/[address] Vicky Riddle. SUBJECTIVE: The patient was interviewed. Case was discussed with staff, and chart reviewed. Per the staff, the patient has been confused. The patient needs constant redirection, has been depressed. The patient also recently fell. The patient was interviewed this morning in the [facility] hallway. The patient is sitting in a chair. The patient is confused. She is not making any sense. She is talking to unseen others. Her speech is incoherent. She is unable to engage appropriately with the interview. MENTAL STATUS EXAMINATION: The patient is an elderly female. She presents labile. Her speech is incoherent and mumbled. Her thought process is disorganized. Unable to assess suicidal or homicidal ideation due to poor cooperation, but she does seem to be internally preoccupied, also somewhat paranoid. She is alert and oriented to her name. Her insight, judgment, and impulse control remain very poor at this time. ASSESSMENT: This is a 76-year-old female admitted to [facility] for acute psychosis. The patient at this time continues with significantly disorganized behavior. The patient also continues with agitation. She needs constant redirection and apparently has been feeling depressed and also internally preoccupied. PLAN: We will continue the patient on acute hospitalization. We will continue medications as prescribed. We will encourage the patient to verbalize her needs. Encourage the patient to participate in group and milieu therapy. Encourage the patient to work with case management social worker and case manager specialist for discharge planning and the need for community resources. JOB# [id number] [facility] CENTERJulio César
--- NOTE | 2017-10-18 20:30 | Internal Medicine Prog Note ---
Internal Medicine Subjective - Subjective Service Date: 10/18/17 Patient seen and examined:: with staff Patient is:: awake, verbal, in bed, confused Per staff patient has:: no adverse event Internal Medicine Objective - Results Result Diagrams: 10/07/17 13:20 10/07/17 13:20 Recent Labs: Laboratory Last Values WBC 7.4 Th/cmm (4.8-10.8) 10/07/17 13:20 RBC 3.79 Mil/cmm (3.80-5.20) L 10/07/17 13:20 Hgb 11.5 gm/dL (12-16) L 10/07/17 13:20 Hct 34.2 % (41.0-60) L 10/07/17 13:20 MCV 90.2 fl (81-100) 10/07/17 13:20 MCH 30.2 pg (27.0-31.0) 10/07/17 13:20 MCHC Differential 33.5 pg (28.0-36.0) 10/07/17 13:20 RDW 15.1 % (11.5-20.0) 10/07/17 13:20 Plt Count 362 Th/cmm (150-400) 10/07/17 13:20 MPV 7.0 fl 10/07/17 13:20 Add Manual Diff YES 10/07/17 13:20 Neutrophils (Manual) 68 % (40-80) 10/07/17 13:20 Lymphocytes 18 % (20-50) L 10/07/17 13:20 Monocytes 8 % (2-10) 10/07/17 13:20 Eosinophils 2 % (0-5) 10/07/17 13:20 Basophils 4 % (0-3) H 10/07/17 13:20 Platelet Estimate ADEQUATE (NORMAL) 10/07/17 13:20 Sodium 136 mEq/L (136-145) 10/07/17 13:20 Potassium 3.6 mEq/L (3.5-5.1) 10/07/17 13:20 Chloride 98 mEq/L (98-107) 10/07/17 13:20 Carbon Dioxide 28.9 mEq/L (21.0-31.0) 10/07/17 13:20 Anion Gap 12.7 (7.0-16.0) 10/07/17 13:20 BUN 16 mg/dL (7-25) 10/07/17 13:20 Creatinine 0.8 mg/dL (0.6-1.2) 10/07/17 13:20 Est GFR ( Amer) TNP 10/07/17 13:20 Est GFR (Non-Af Amer) TNP 10/07/17 13:20 BUN/Creatinine Ratio 20.0 10/07/17 13:20 Glucose 90 mg/dL (70-105) 10/07/17 13:20 Hemoglobin A1c % 6.4 % (4.0-6.0) H 10/07/17 13:20 Calcium 10.2 mg/dL (8.6-10.3) 10/07/17 13:20 Total Bilirubin 0.6 mg/dL (0.3-1.0) 10/07/17 13:20 AST 21 U/L (13-39) 10/07/17 13:20 ALT 11 U/L (7-52) 10/07/17 13:20 Alkaline Phosphatase 120 U/L (34-104) H 10/07/17 13:20 Total Protein 7.4 gm/dL (6.0-8.3) 10/07/17 13:20 Albumin 3.9 gm/dL (3.7-5.3) 10/07/17 13:20 Globulin 3.5 gm/dL 10/07/17 13:20 Albumin/Globulin Ratio 1.1 (1.0-1.8) 10/07/17 13:20 Triglycerides 91 mg/dL (<150) 10/07/17 13:20 Cholesterol 302 mg/dL (<200) H 10/07/17 13:20 LDL Cholesterol Direct 151 mg/dL (75-193) 10/07/17 13:20 HDL Cholesterol 106 mg/dL (23-92) H 10/07/17 13:20 TSH 1.63 uIU/ml (0.34-5.60) 10/07/17 13:20 Urine Source CLEAN C 10/07/17 13:00 Urine Color YELLOW 10/07/17 13:00 Urine Clarity CLEAR (CLEAR) 10/07/17 13:00 Urine pH 6.0 (4.6 - 8.0) 10/07/17 13:00 Ur Specific [place] 1.015 (1.005-1.030) 10/07/17 13:00 Urine Protein 30 mg/dL (NEGATIVE) H 10/07/17 13:00 Urine Glucose (UA) NEGATIVE mg/dL (NEGATIVE) 10/07/17 13:00 Urine Ketones NEGATIVE mg/dL (NEGATIVE) 10/07/17 13:00 Urine Blood SMALL (NEGATIVE) H 10/07/17 13:00 Urine Nitrate NEGATIVE (NEGATIVE) 10/07/17 13:00 Urine Bilirubin NEGATIVE (NEGATIVE) 10/07/17 13:00 Urine Urobilinogen 0.2 E.U./dL (0.2 - 1.0) 10/07/17 13:00 Ur Leukocyte Esterase NEGATIVE (NEGATIVE) 10/07/17 13:00 Urine RBC 0-2 /hpf (0-5) 10/07/17 13:00 Urine WBC 0-2 /hpf (0-5) 10/07/17 13:00 Ur Epithelial Cells FEW /lpf (FEW) 10/07/17 13:00 Urine Bacteria NONE SEEN /hpf (NONE SEEN) 10/07/17 13:00 Salicylates < 25.0 mg/L (30.0-100.0) L 10/07/17 13:20 Urine Opiates Screen NEGATIVE (NEGATIVE) 10/07/17 13:00 Urine Methadone Screen NEGATIVE (NEGATIVE) 10/07/17 13:00 Acetaminophen < 10.0 ug/mL (10.0-30.0) L 10/07/17 13:20 Ur Barbiturates Screen NEGATIVE (NEGATIVE) 10/07/17 13:00 Ur Tricyclics Screen NEGATIVE (NEGATIVE) 10/07/17 13:00 Ur Phencyclidine Scrn NEGATIVE (NEGATIVE) 10/07/17 13:00 Amphetamines Screen NEGATIVE (NEGATIVE) 10/07/17 13:00 U Methamphetamines Scrn NEGATIVE (NEGATIVE) 10/07/17 13:00 U Benzodiazepines Scrn NEGATIVE (NEGATIVE) 10/07/17 13:00 U Cocaine Metab Screen NEGATIVE (NEGATIVE) 10/07/17 13:00 U Cannabinoids Screen NEGATIVE (NEGATIVE) 10/07/17 13:00 Ethyl Alcohol < 10 mg/dL (0-10) 10/07/17 13:20 RPR NONREACTIVE (NONREACTIVE) 10/07/17 13:20 - Physical Exam Vitals and I&O: Vital Signs Temp 97.7 F 07/23/18 15:56 Pulse 83 10/18/17 15:56 Resp 18 10/18/17 15:56 BP 120/72 10/18/17 15:56 Pulse Ox 97 10/18/17 15:56 Intake & Output 10/18/17 10/18/17 10/19/17 06:59 18:59 06:59 Intake Total 240 Balance 240 Intake: Oral 240 Other: # Voids 2 Active Medications: Current Medications Acetaminophen (Tylenol) 650 mg PO Q4HR PRN PRN Reason: Mild Pain / Temp above 100 Stop: 12/06/17 18:40 Last Admin: 10/16/17 15:19 Dose: 650 mg Al Hydrox/Mg Hydrox/Simethicone (Maalox) 30 ml PO Q4HR PRN PRN Reason: GI DISTRESS Stop: 12/06/17 18:40 Atorvastatin Calcium (Lipitor) 40 mg PO HS KIRK Stop: 12/06/17 20:59 Last Admin: 10/17/17 20:23 Dose: 40 mg Cyanocobalamin (Vitamin B12) 1,000 mcg PO DAILY [facility] Stop: 12/07/17 08:59 Last Admin: 10/18/17 09:24 Dose: 1,000 mcg Ferrous Sulfate (Iron) 325 mg PO DAILY KIRK Stop: 12/07/17 08:59 Last Admin: 10/18/17 09:25 Dose: 325 mg Losartan Potassium (Cozaar) 100 mg PO DAILY [facility] Stop: 12/07/17 08:59 Last Admin: 10/18/17 09:25 Dose: 100 mg Magnesium Hydroxide (Milk Of Magnesia) 30 ml PO HS PRN PRN Reason: Constipation Multivitamins/Vitamin C (Theragran) 1 tab PO DAILY [facility] Stop: 12/07/17 08:59 Last Admin: 10/18/17 09:26 Dose: 1 tab Quetiapine Fumarate (Seroquel) 12.5 mg PO DAILY [facility]; Protocol Stop: 12/12/17 08:59 Last Admin: 10/18/17 09:24 Dose: 12.5 mg Quetiapine Fumarate (Seroquel) 12.5 mg PO HS KIRK; Protocol Stop: 12/14/17 20:59 Last Admin: 10/17/17 20:24 Dose: 12.5 mg Vitamin D (Vitamin D3) 2,000 iu PO DAILY [facility] Stop: 12/07/17 08:59 Last Admin: 10/18/17 09:26 Dose: 2,000 iu General: demented HEENT: NC/AT, PERRLA, anicteric sclerae, throat clear Neck: Supple, No JVD, No thyromegaly, +2 carotid pulse wo bruit, No LAD Lungs: CTAB Cardiovascular: RRR, Normal S1, Normal S2, without murmur Abdomen: non-tender, non-distended Extremities: clear Neurological: no change Internal Medicine Assmt/Plan - Assessment Assessment: 1.HTN. 2.HYPERLIPIDEMIA. 3.ANEMIA. 4.DEMENTIA. 5.LEFT FRONTAL LOBE SUBARACHNOID HGE. - Plan Plan: CONTINUE ON CURRENT MEDICATION AND DIET Nutritional Asmnt/Malnutr-PDOC - Dietary Evaluation Malnutrition Findings (Please click <Entered> for more info): Nutritional Asmnt/Malnutrition Start: 10/11/17 14: 34 Text: Status: Complete Freq: Protocol: Document 10/11/17 14:34 DYLAN (Rec: 10/11/17 14:44 DYLAN [email or web address]) Nutritional Asmnt/Malnutrition Patient General Information Nutritional Screening Moderate Risk Diagnosis psychosis Pertinent Medical Hx/Surgical Hx HTN, hyperlipidemia, DJD, dementia Subjective Information Pt seen in amando-chair in the hallway, talkative and confused. PO intake 75-100% of meals. Current Diet Order/ Nutrition Support PRICE, low fat Pertinent Medications vit B12, Iron, theragran, seroquel, vit D3 Pertinent Labs 10/07 glucose 90, A1c 6.4 Nutritional Hx/Data Height 1.57 m Height (Calculated Centimeters) 157.5 Current Weight (lbs) 45.359 kg Weight (Calculated Kilograms) 45.4 Weight (Calculated Grams) 09336.2 [place] Body Weight 110 Body Mass Index (BMI) 18.3 Weight Status Underweight GI Symptoms GI Symptoms None Last BM 10/07 Difficult in: None Skin Integrity/Comment: carlos score 19 Current %PO Good (75-100%) Estimated Nutritional Goals BEE in Kcals: Using Current wt Calories/Kcals/Kg 25-30 Kcals Calculated 5829-1765 Protein: Using Current wt Protein g/k-1.2 Protein Calculated 45-54 Fluid: ml 1125-1350ml (1ml/kcal) Nutritional Problem No current Nutrition Prob Problem N/A Malnutrition Alert Is there a minimum of two criteria No selected? Query Text:Check all the applicable criteria. A minimum of two criteria are recommended for diagnosis of either severe or non-severe malnutrition. Malnutrition Related to Morbid Obesity Malnutrition related to morbid obesity No Intervention/Recommendation Comments 1. Continue with PRICE, low fat diet as ordered. Monitor glucose level. 2. Monitor PO intake, wt, labs and skin integrity 3. F/U as low risk in 7 days, 10/18 Expected Outcomes/Goals Expected Outcomes/Goals 1. PO intake to meet at least 75% of nutritional needs. 2. Wt stability, skin to remain intact, labs to approach WNL.
--- NOTE | 2017-10-18 23:03 | Progress Notes ---
DATE: 10/18/2017 Case was discussed with staff of the patient, reviewed records. Covering for Dr. Riddle. This is a 76-year-old female who was admitted on 10/07/2017 because of depression, confusion, easily agitated, continues to be isolating, depressed, continues to have episodes of agitation and irritability, continues to be unable to follow directions, continues to have poor insight. She has been compliant with the medication with no side effects, no sedation, no nausea and no extrapyramidal symptoms and she is on Seroquel 12.5 mg daily and 12.5 mg at bedtime. No side effects with the medication, no sedation, no nausea, no extrapyramidal symptoms. We will continue to work with the patient in group therapy, milieu therapy, adjust the medication as needed. JOB# [id number]
[2017-10-19] MEDS: Vitamin D3 2,000 IU SGL PO SCH (09:26)
[2017-10-19] MEDS: Ferrous Sulfate 325 MG TAB PO SCH (09:27)
[2017-10-19] MEDS: Multivitamin Tab PO SCH (09:27)
--- NOTE | 2017-10-19 20:54 | Internal Medicine Prog Note ---
Internal Medicine Subjective - Subjective Service Date: 10/19/17 Patient seen and examined:: with staff Patient is:: awake, verbal, in bed, confused Per staff patient has:: no adverse event Internal Medicine Objective - Results Result Diagrams: 10/07/17 13:20 10/07/17 13:20 Recent Labs: Laboratory Last Values WBC 7.4 Th/cmm (4.8-10.8) 10/07/17 13:20 RBC 3.79 Mil/cmm (3.80-5.20) L 10/07/17 13:20 Hgb 11.5 gm/dL (12-16) L 10/07/17 13:20 Hct 34.2 % (41.0-60) L 10/07/17 13:20 MCV 90.2 fl (81-100) 10/07/17 13:20 MCH 30.2 pg (27.0-31.0) 10/07/17 13:20 MCHC Differential 33.5 pg (28.0-36.0) 10/07/17 13:20 RDW 15.1 % (11.5-20.0) 10/07/17 13:20 Plt Count 362 Th/cmm (150-400) 10/07/17 13:20 MPV 7.0 fl 10/07/17 13:20 Add Manual Diff YES 10/07/17 13:20 Neutrophils (Manual) 68 % (40-80) 10/07/17 13:20 Lymphocytes 18 % (20-50) L 10/07/17 13:20 Monocytes 8 % (2-10) 10/07/17 13:20 Eosinophils 2 % (0-5) 10/07/17 13:20 Basophils 4 % (0-3) H 10/07/17 13:20 Platelet Estimate ADEQUATE (NORMAL) 10/07/17 13:20 Sodium 136 mEq/L (136-145) 10/07/17 13:20 Potassium 3.6 mEq/L (3.5-5.1) 10/07/17 13:20 Chloride 98 mEq/L (98-107) 10/07/17 13:20 Carbon Dioxide 28.9 mEq/L (21.0-31.0) 10/07/17 13:20 Anion Gap 12.7 (7.0-16.0) 10/07/17 13:20 BUN 16 mg/dL (7-25) 10/07/17 13:20 Creatinine 0.8 mg/dL (0.6-1.2) 10/07/17 13:20 Est GFR ( Amer) TNP 10/07/17 13:20 Est GFR (Non-Af Amer) TNP 10/07/17 13:20 BUN/Creatinine Ratio 20.0 10/07/17 13:20 Glucose 90 mg/dL (70-105) 10/07/17 13:20 Hemoglobin A1c % 6.4 % (4.0-6.0) H 10/07/17 13:20 Calcium 10.2 mg/dL (8.6-10.3) 10/07/17 13:20 Total Bilirubin 0.6 mg/dL (0.3-1.0) 10/07/17 13:20 AST 21 U/L (13-39) 10/07/17 13:20 ALT 11 U/L (7-52) 10/07/17 13:20 Alkaline Phosphatase 120 U/L (34-104) H 10/07/17 13:20 Total Protein 7.4 gm/dL (6.0-8.3) 10/07/17 13:20 Albumin 3.9 gm/dL (3.7-5.3) 10/07/17 13:20 Globulin 3.5 gm/dL 10/07/17 13:20 Albumin/Globulin Ratio 1.1 (1.0-1.8) 10/07/17 13:20 Triglycerides 91 mg/dL (<150) 10/07/17 13:20 Cholesterol 302 mg/dL (<200) H 10/07/17 13:20 LDL Cholesterol Direct 151 mg/dL (75-193) 10/07/17 13:20 HDL Cholesterol 106 mg/dL (23-92) H 10/07/17 13:20 TSH 1.63 uIU/ml (0.34-5.60) 10/07/17 13:20 Urine Source CLEAN C 10/07/17 13:00 Urine Color YELLOW 10/07/17 13:00 Urine Clarity CLEAR (CLEAR) 10/07/17 13:00 Urine pH 6.0 (4.6 - 8.0) 10/07/17 13:00 Ur Specific [place] 1.015 (1.005-1.030) 10/07/17 13:00 Urine Protein 30 mg/dL (NEGATIVE) H 10/07/17 13:00 Urine Glucose (UA) NEGATIVE mg/dL (NEGATIVE) 10/07/17 13:00 Urine Ketones NEGATIVE mg/dL (NEGATIVE) 10/07/17 13:00 Urine Blood SMALL (NEGATIVE) H 10/07/17 13:00 Urine Nitrate NEGATIVE (NEGATIVE) 10/07/17 13:00 Urine Bilirubin NEGATIVE (NEGATIVE) 10/07/17 13:00 Urine Urobilinogen 0.2 E.U./dL (0.2 - 1.0) 10/07/17 13:00 Ur Leukocyte Esterase NEGATIVE (NEGATIVE) 10/07/17 13:00 Urine RBC 0-2 /hpf (0-5) 10/07/17 13:00 Urine WBC 0-2 /hpf (0-5) 10/07/17 13:00 Ur Epithelial Cells FEW /lpf (FEW) 10/07/17 13:00 Urine Bacteria NONE SEEN /hpf (NONE SEEN) 10/07/17 13:00 Salicylates < 25.0 mg/L (30.0-100.0) L 10/07/17 13:20 Urine Opiates Screen NEGATIVE (NEGATIVE) 10/07/17 13:00 Urine Methadone Screen NEGATIVE (NEGATIVE) 10/07/17 13:00 Acetaminophen < 10.0 ug/mL (10.0-30.0) L 10/07/17 13:20 Ur Barbiturates Screen NEGATIVE (NEGATIVE) 10/07/17 13:00 Ur Tricyclics Screen NEGATIVE (NEGATIVE) 10/07/17 13:00 Ur Phencyclidine Scrn NEGATIVE (NEGATIVE) 10/07/17 13:00 Amphetamines Screen NEGATIVE (NEGATIVE) 10/07/17 13:00 U Methamphetamines Scrn NEGATIVE (NEGATIVE) 10/07/17 13:00 U Benzodiazepines Scrn NEGATIVE (NEGATIVE) 10/07/17 13:00 U Cocaine Metab Screen NEGATIVE (NEGATIVE) 10/07/17 13:00 U Cannabinoids Screen NEGATIVE (NEGATIVE) 10/07/17 13:00 Ethyl Alcohol < 10 mg/dL (0-10) 10/07/17 13:20 RPR NONREACTIVE (NONREACTIVE) 10/07/17 13:20 - Physical Exam Vitals and I&O: Vital Signs Temp 97.8 F 07/24/18 20:21 Pulse 89 10/19/17 20:21 Resp 20 10/19/17 20:21 BP 130/67 10/19/17 20:21 Pulse Ox 94 10/19/17 20:21 Intake & Output 10/19/17 10/19/17 10/20/17 06:59 18:59 06:59 Intake Total 240 240 Output Total 1 Balance 240 -1 240 Weight (lbs) 45.359 kg Intake: Oral 240 240 Output: Stool 1 Other: # Voids 2 4 3 # Bowel Movements 0 Weight Source Bedscale Active Medications: Current Medications Acetaminophen (Tylenol) 650 mg PO Q4HR PRN PRN Reason: Mild Pain / Temp above 100 Stop: 12/06/17 18:40 Last Admin: 10/16/17 15:19 Dose: 650 mg Al Hydrox/Mg Hydrox/Simethicone (Maalox) 30 ml PO Q4HR PRN PRN Reason: GI DISTRESS Stop: 12/06/17 18:40 Atorvastatin Calcium (Lipitor) 40 mg PO HS [facility] Stop: 12/06/17 20:59 Last Admin: 10/19/17 20:38 Dose: 40 mg Cyanocobalamin (Vitamin B12) 1,000 mcg PO DAILY [facility] Stop: 12/07/17 08:59 Last Admin: 10/19/17 09:26 Dose: 1,000 mcg Ferrous Sulfate (Iron) 325 mg PO DAILY [facility] Stop: 12/07/17 08:59 Last Admin: 10/19/17 09:27 Dose: 325 mg Losartan Potassium (Cozaar) 100 mg PO DAILY [facility] Stop: 12/07/17 08:59 Last Admin: 10/19/17 09:28 Dose: 100 mg Magnesium Hydroxide (Milk Of Magnesia) 30 ml PO HS PRN PRN Reason: Constipation Multivitamins/Vitamin C (Theragran) 1 tab PO DAILY [facility] Stop: 12/07/17 08:59 Last Admin: 10/19/17 09:27 Dose: 1 tab Quetiapine Fumarate (Seroquel) 12.5 mg PO DAILY [facility]; Protocol Stop: 12/12/17 08:59 Last Admin: 10/19/17 09:26 Dose: 12.5 mg Quetiapine Fumarate (Seroquel) 12.5 mg PO HS [facility]; Protocol Stop: 12/14/17 20:59 Last Admin: 10/19/17 20:38 Dose: 12.5 mg Vitamin D (Vitamin D3) 2,000 iu PO DAILY [facility] Stop: 12/07/17 08:59 Last Admin: 10/19/17 09:26 Dose: 2,000 iu General: demented HEENT: NC/AT, PERRLA, anicteric sclerae, throat clear Neck: Supple, No JVD, No thyromegaly, +2 carotid pulse wo bruit, No LAD Lungs: CTAB Cardiovascular: RRR, Normal S1, Normal S2, without murmur Abdomen: non-tender, non-distended Extremities: clear Neurological: no change Internal Medicine Assmt/Plan - Assessment Assessment: 1.HTN. 2.HYPERLIPIDEMIA. 3.ANEMIA. 4.DEMENTIA. 5.LEFT FRONTAL LOBE SUBARACHNOID HGE. - Plan Plan: CONTINUE ON CURRENT MEDICATION AND DIET Nutritional Asmnt/Malnutr-PDOC - Dietary Evaluation Malnutrition Findings (Please click <Entered> for more info): Nutritional Asmnt/Malnutrition Start: 10/11/17 14: 34 Text: Status: Complete Freq: Protocol: Document 10/11/17 14:34 LCHENG (Rec: 10/11/17 14:44 LCHENG [email or web address]) Nutritional Asmnt/Malnutrition Patient General Information Nutritional Screening Moderate Risk Diagnosis psychosis Pertinent Medical Hx/Surgical Hx HTN, hyperlipidemia, DJD, dementia Subjective Information Pt seen in amando-chair in the hallway, talkative and confused. PO intake 75-100% of meals. Current Diet Order/ Nutrition Support PRICE, low fat Pertinent Medications vit B12, Iron, theragran, seroquel, vit D3 Pertinent Labs 10/07 glucose 90, A1c 6.4 Nutritional Hx/Data Height 1.57 m Height (Calculated Centimeters) 157.5 Current Weight (lbs) 45.359 kg Weight (Calculated Kilograms) 45.4 Weight (Calculated Grams) 69659.2 [place] Body Weight 110 Body Mass Index (BMI) 18.3 Weight Status Underweight GI Symptoms GI Symptoms None Last BM 10/07 Difficult in: None Skin Integrity/Comment: carlos score 19 Current %PO Good (75-100%) Estimated Nutritional Goals BEE in Kcals: Using Current wt Calories/Kcals/Kg 25-30 Kcals Calculated 0947-8411 Protein: Using Current wt Protein g/k-1.2 Protein Calculated 45-54 Fluid: ml 1125-1350ml (1ml/kcal) Nutritional Problem No current Nutrition Prob Problem N/A Malnutrition Alert Is there a minimum of two criteria No selected? Query Text:Check all the applicable criteria. A minimum of two criteria are recommended for diagnosis of either severe or non-severe malnutrition. Malnutrition Related to Morbid Obesity Malnutrition related to morbid obesity No Intervention/Recommendation Comments 1. Continue with PRICE, low fat diet as ordered. Monitor glucose level. 2. Monitor PO intake, wt, labs and skin integrity 3. F/U as low risk in 7 days, 10/18 Expected Outcomes/Goals Expected Outcomes/Goals 1. PO intake to meet at least 75% of nutritional needs. 2. Wt stability, skin to remain intact, labs to approach WNL.
[2017-10-20] MEDS: Vitamin D3 2,000 IU SGL PO SCH (09:34)
[2017-10-20] MEDS: Ferrous Sulfate 325 MG TAB PO SCH (09:35)
[2017-10-20] MEDS: Multivitamin Tab PO SCH (09:37)
--- NOTE | 2017-10-20 21:45 | Internal Medicine Prog Note ---
Internal Medicine Subjective - Subjective Service Date: 10/20/17 Patient seen and examined:: with staff Patient is:: awake, verbal, in bed, confused Per staff patient has:: no adverse event Internal Medicine Objective - Results Result Diagrams: 10/07/17 13:20 10/07/17 13:20 Recent Labs: Laboratory Last Values WBC 7.4 Th/cmm (4.8-10.8) 10/07/17 13:20 RBC 3.79 Mil/cmm (3.80-5.20) L 10/07/17 13:20 Hgb 11.5 gm/dL (12-16) L 10/07/17 13:20 Hct 34.2 % (41.0-60) L 10/07/17 13:20 MCV 90.2 fl (81-100) 10/07/17 13:20 MCH 30.2 pg (27.0-31.0) 10/07/17 13:20 MCHC Differential 33.5 pg (28.0-36.0) 10/07/17 13:20 RDW 15.1 % (11.5-20.0) 10/07/17 13:20 Plt Count 362 Th/cmm (150-400) 10/07/17 13:20 MPV 7.0 fl 10/07/17 13:20 Add Manual Diff YES 10/07/17 13:20 Neutrophils (Manual) 68 % (40-80) 10/07/17 13:20 Lymphocytes 18 % (20-50) L 10/07/17 13:20 Monocytes 8 % (2-10) 10/07/17 13:20 Eosinophils 2 % (0-5) 10/07/17 13:20 Basophils 4 % (0-3) H 10/07/17 13:20 Platelet Estimate ADEQUATE (NORMAL) 10/07/17 13:20 Sodium 136 mEq/L (136-145) 10/07/17 13:20 Potassium 3.6 mEq/L (3.5-5.1) 10/07/17 13:20 Chloride 98 mEq/L (98-107) 10/07/17 13:20 Carbon Dioxide 28.9 mEq/L (21.0-31.0) 10/07/17 13:20 Anion Gap 12.7 (7.0-16.0) 10/07/17 13:20 BUN 16 mg/dL (7-25) 10/07/17 13:20 Creatinine 0.8 mg/dL (0.6-1.2) 10/07/17 13:20 Est GFR ( Amer) TNP 10/07/17 13:20 Est GFR (Non-Af Amer) TNP 10/07/17 13:20 BUN/Creatinine Ratio 20.0 10/07/17 13:20 Glucose 90 mg/dL (70-105) 10/07/17 13:20 Hemoglobin A1c % 6.4 % (4.0-6.0) H 10/07/17 13:20 Calcium 10.2 mg/dL (8.6-10.3) 10/07/17 13:20 Total Bilirubin 0.6 mg/dL (0.3-1.0) 10/07/17 13:20 AST 21 U/L (13-39) 10/07/17 13:20 ALT 11 U/L (7-52) 10/07/17 13:20 Alkaline Phosphatase 120 U/L (34-104) H 10/07/17 13:20 Total Protein 7.4 gm/dL (6.0-8.3) 10/07/17 13:20 Albumin 3.9 gm/dL (3.7-5.3) 10/07/17 13:20 Globulin 3.5 gm/dL 10/07/17 13:20 Albumin/Globulin Ratio 1.1 (1.0-1.8) 10/07/17 13:20 Triglycerides 91 mg/dL (<150) 10/07/17 13:20 Cholesterol 302 mg/dL (<200) H 10/07/17 13:20 LDL Cholesterol Direct 151 mg/dL (75-193) 10/07/17 13:20 HDL Cholesterol 106 mg/dL (23-92) H 10/07/17 13:20 TSH 1.63 uIU/ml (0.34-5.60) 10/07/17 13:20 Urine Source CLEAN C 10/07/17 13:00 Urine Color YELLOW 10/07/17 13:00 Urine Clarity CLEAR (CLEAR) 10/07/17 13:00 Urine pH 6.0 (4.6 - 8.0) 10/07/17 13:00 Ur Specific [place] 1.015 (1.005-1.030) 10/07/17 13:00 Urine Protein 30 mg/dL (NEGATIVE) H 10/07/17 13:00 Urine Glucose (UA) NEGATIVE mg/dL (NEGATIVE) 10/07/17 13:00 Urine Ketones NEGATIVE mg/dL (NEGATIVE) 10/07/17 13:00 Urine Blood SMALL (NEGATIVE) H 10/07/17 13:00 Urine Nitrate NEGATIVE (NEGATIVE) 10/07/17 13:00 Urine Bilirubin NEGATIVE (NEGATIVE) 10/07/17 13:00 Urine Urobilinogen 0.2 E.U./dL (0.2 - 1.0) 10/07/17 13:00 Ur Leukocyte Esterase NEGATIVE (NEGATIVE) 10/07/17 13:00 Urine RBC 0-2 /hpf (0-5) 10/07/17 13:00 Urine WBC 0-2 /hpf (0-5) 10/07/17 13:00 Ur Epithelial Cells FEW /lpf (FEW) 10/07/17 13:00 Urine Bacteria NONE SEEN /hpf (NONE SEEN) 10/07/17 13:00 Salicylates < 25.0 mg/L (30.0-100.0) L 10/07/17 13:20 Urine Opiates Screen NEGATIVE (NEGATIVE) 10/07/17 13:00 Urine Methadone Screen NEGATIVE (NEGATIVE) 10/07/17 13:00 Acetaminophen < 10.0 ug/mL (10.0-30.0) L 10/07/17 13:20 Ur Barbiturates Screen NEGATIVE (NEGATIVE) 10/07/17 13:00 Ur Tricyclics Screen NEGATIVE (NEGATIVE) 10/07/17 13:00 Ur Phencyclidine Scrn NEGATIVE (NEGATIVE) 10/07/17 13:00 Amphetamines Screen NEGATIVE (NEGATIVE) 10/07/17 13:00 U Methamphetamines Scrn NEGATIVE (NEGATIVE) 10/07/17 13:00 U Benzodiazepines Scrn NEGATIVE (NEGATIVE) 10/07/17 13:00 U Cocaine Metab Screen NEGATIVE (NEGATIVE) 10/07/17 13:00 U Cannabinoids Screen NEGATIVE (NEGATIVE) 10/07/17 13:00 Ethyl Alcohol < 10 mg/dL (0-10) 10/07/17 13:20 RPR NONREACTIVE (NONREACTIVE) 10/07/17 13:20 - Physical Exam Vitals and I&O: Vital Signs Temp 97.9 F 07/25/18 20:08 Pulse 103 10/20/17 20:08 Resp 18 10/20/17 20:08 BP 99/55 10/20/17 20:08 Pulse Ox 99 10/20/17 20:08 Intake & Output 10/20/17 10/20/17 10/21/17 06:59 18:59 06:59 Intake Total 240 Balance 240 Weight (lbs) 45.359 kg 45.359 kg Intake: Oral 240 Other: # Voids 3 0 # Bowel Movements 0 0 Weight Source Bedscale Bedscale Active Medications: Current Medications Acetaminophen (Tylenol) 650 mg PO Q4HR PRN PRN Reason: Mild Pain / Temp above 100 Stop: 12/06/17 18:40 Last Admin: 10/16/17 15:19 Dose: 650 mg Al Hydrox/Mg Hydrox/Simethicone (Maalox) 30 ml PO Q4HR PRN PRN Reason: GI DISTRESS Stop: 12/06/17 18:40 Atorvastatin Calcium (Lipitor) 40 mg PO HS [facility] Stop: 12/06/17 20:59 Last Admin: 10/20/17 21:06 Dose: 40 mg Cyanocobalamin (Vitamin B12) 1,000 mcg PO DAILY [facility] Stop: 12/07/17 08:59 Last Admin: 10/20/17 09:34 Dose: 1,000 mcg Ferrous Sulfate (Iron) 325 mg PO DAILY [facility] Stop: 12/07/17 08:59 Last Admin: 10/20/17 09:35 Dose: 325 mg Losartan Potassium (Cozaar) 100 mg PO DAILY [facility] Stop: 12/07/17 08:59 Last Admin: 10/20/17 09:49 Dose: Not Given Magnesium Hydroxide (Milk Of Magnesia) 30 ml PO HS PRN PRN Reason: Constipation Multivitamins/Vitamin C (Theragran) 1 tab PO DAILY [facility] Stop: 12/07/17 08:59 Last Admin: 10/20/17 09:37 Dose: 1 tab Quetiapine Fumarate (Seroquel) 12.5 mg PO DAILY [facility]; Protocol Stop: 12/12/17 08:59 Last Admin: 10/20/17 09:36 Dose: 12.5 mg Quetiapine Fumarate (Seroquel) 12.5 mg PO HS [facility]; Protocol Stop: 12/14/17 20:59 Last Admin: 10/20/17 21:07 Dose: 12.5 mg Vitamin D (Vitamin D3) 2,000 iu PO DAILY [facility] Stop: 12/07/17 08:59 Last Admin: 10/20/17 09:34 Dose: 2,000 iu General: demented HEENT: NC/AT, PERRLA, anicteric sclerae, throat clear Neck: Supple, No JVD, No thyromegaly, +2 carotid pulse wo bruit, No LAD Lungs: CTAB Cardiovascular: RRR, Normal S1, Normal S2, without murmur Abdomen: non-tender, non-distended Extremities: clear Neurological: no change Internal Medicine Assmt/Plan - Assessment Assessment: 1.HTN. 2.HYPERLIPIDEMIA. 3.ANEMIA. 4.DEMENTIA. - Plan Plan: CONTINUE ON CURRENT MEDICATION AND DIET Nutritional Asmnt/Malnutr-PDOC - Dietary Evaluation Malnutrition Findings (Please click <Entered> for more info): Nutritional Asmnt/Malnutrition Start: 10/11/17 14: 34 Text: Status: Complete Freq: Protocol: Document 10/11/17 14:34 CLARA (Rec: 10/11/17 14:44 CLARA [email or web address]) Nutritional Asmnt/Malnutrition Patient General Information Nutritional Screening Moderate Risk Diagnosis psychosis Pertinent Medical Hx/Surgical Hx HTN, hyperlipidemia, DJD, dementia Subjective Information Pt seen in amando-chair in the hallway, talkative and confused. PO intake 75-100% of meals. Current Diet Order/ Nutrition Support PRICE, low fat Pertinent Medications vit B12, Iron, theragran, seroquel, vit D3 Pertinent Labs 10/07 glucose 90, A1c 6.4 Nutritional Hx/Data Height 1.57 m Height (Calculated Centimeters) 157.5 Current Weight (lbs) 45.359 kg Weight (Calculated Kilograms) 45.4 Weight (Calculated Grams) 96724.2 [place] Body Weight 110 Body Mass Index (BMI) 18.3 Weight Status Underweight GI Symptoms GI Symptoms None Last BM 10/07 Difficult in: None Skin Integrity/Comment: carlos score 19 Current %PO Good (75-100%) Estimated Nutritional Goals BEE in Kcals: Using Current wt Calories/Kcals/Kg 25-30 Kcals Calculated 5786-8784 Protein: Using Current wt Protein g/k-1.2 Protein Calculated 45-54 Fluid: ml 1125-1350ml (1ml/kcal) Nutritional Problem No current Nutrition Prob Problem N/A Malnutrition Alert Is there a minimum of two criteria No selected? Query Text:Check all the applicable criteria. A minimum of two criteria are recommended for diagnosis of either severe or non-severe malnutrition. Malnutrition Related to Morbid Obesity Malnutrition related to morbid obesity No Intervention/Recommendation Comments 1. Continue with PRICE, low fat diet as ordered. Monitor glucose level. 2. Monitor PO intake, wt, labs and skin integrity 3. F/U as low risk in 7 days, 10/18 Expected Outcomes/Goals Expected Outcomes/Goals 1. PO intake to meet at least 75% of nutritional needs. 2. Wt stability, skin to remain intact, labs to approach WNL.
[2017-10-21] MEDS: Ferrous Sulfate 325 MG TAB PO SCH (09:02)
[2017-10-21] MEDS: Vitamin D3 2,000 IU SGL PO SCH (09:04)
--- NOTE | 2017-10-21 22:19 | Internal Medicine Prog Note ---
Internal Medicine Subjective - Subjective Service Date: 10/21/17 Patient seen and examined:: with staff Patient is:: awake, verbal, in bed, confused Per staff patient has:: no adverse event Internal Medicine Objective - Results Result Diagrams: 10/07/17 13:20 10/07/17 13:20 Recent Labs: Laboratory Last Values WBC 7.4 Th/cmm (4.8-10.8) 10/07/17 13:20 RBC 3.79 Mil/cmm (3.80-5.20) L 10/07/17 13:20 Hgb 11.5 gm/dL (12-16) L 10/07/17 13:20 Hct 34.2 % (41.0-60) L 10/07/17 13:20 MCV 90.2 fl (81-100) 10/07/17 13:20 MCH 30.2 pg (27.0-31.0) 10/07/17 13:20 MCHC Differential 33.5 pg (28.0-36.0) 10/07/17 13:20 RDW 15.1 % (11.5-20.0) 10/07/17 13:20 Plt Count 362 Th/cmm (150-400) 10/07/17 13:20 MPV 7.0 fl 10/07/17 13:20 Add Manual Diff YES 10/07/17 13:20 Neutrophils (Manual) 68 % (40-80) 10/07/17 13:20 Lymphocytes 18 % (20-50) L 10/07/17 13:20 Monocytes 8 % (2-10) 10/07/17 13:20 Eosinophils 2 % (0-5) 10/07/17 13:20 Basophils 4 % (0-3) H 10/07/17 13:20 Platelet Estimate ADEQUATE (NORMAL) 10/07/17 13:20 Sodium 136 mEq/L (136-145) 10/07/17 13:20 Potassium 3.6 mEq/L (3.5-5.1) 10/07/17 13:20 Chloride 98 mEq/L (98-107) 10/07/17 13:20 Carbon Dioxide 28.9 mEq/L (21.0-31.0) 10/07/17 13:20 Anion Gap 12.7 (7.0-16.0) 10/07/17 13:20 BUN 16 mg/dL (7-25) 10/07/17 13:20 Creatinine 0.8 mg/dL (0.6-1.2) 10/07/17 13:20 Est GFR ( Amer) TNP 10/07/17 13:20 Est GFR (Non-Af Amer) TNP 10/07/17 13:20 BUN/Creatinine Ratio 20.0 10/07/17 13:20 Glucose 90 mg/dL (70-105) 10/07/17 13:20 Hemoglobin A1c % 6.4 % (4.0-6.0) H 10/07/17 13:20 Calcium 10.2 mg/dL (8.6-10.3) 10/07/17 13:20 Total Bilirubin 0.6 mg/dL (0.3-1.0) 10/07/17 13:20 AST 21 U/L (13-39) 10/07/17 13:20 ALT 11 U/L (7-52) 10/07/17 13:20 Alkaline Phosphatase 120 U/L (34-104) H 10/07/17 13:20 Total Protein 7.4 gm/dL (6.0-8.3) 10/07/17 13:20 Albumin 3.9 gm/dL (3.7-5.3) 10/07/17 13:20 Globulin 3.5 gm/dL 10/07/17 13:20 Albumin/Globulin Ratio 1.1 (1.0-1.8) 10/07/17 13:20 Triglycerides 91 mg/dL (<150) 10/07/17 13:20 Cholesterol 302 mg/dL (<200) H 10/07/17 13:20 LDL Cholesterol Direct 151 mg/dL (75-193) 10/07/17 13:20 HDL Cholesterol 106 mg/dL (23-92) H 10/07/17 13:20 TSH 1.63 uIU/ml (0.34-5.60) 10/07/17 13:20 Urine Source CLEAN C 10/07/17 13:00 Urine Color YELLOW 10/07/17 13:00 Urine Clarity CLEAR (CLEAR) 10/07/17 13:00 Urine pH 6.0 (4.6 - 8.0) 10/07/17 13:00 Ur Specific [place] 1.015 (1.005-1.030) 10/07/17 13:00 Urine Protein 30 mg/dL (NEGATIVE) H 10/07/17 13:00 Urine Glucose (UA) NEGATIVE mg/dL (NEGATIVE) 10/07/17 13:00 Urine Ketones NEGATIVE mg/dL (NEGATIVE) 10/07/17 13:00 Urine Blood SMALL (NEGATIVE) H 10/07/17 13:00 Urine Nitrate NEGATIVE (NEGATIVE) 10/07/17 13:00 Urine Bilirubin NEGATIVE (NEGATIVE) 10/07/17 13:00 Urine Urobilinogen 0.2 E.U./dL (0.2 - 1.0) 10/07/17 13:00 Ur Leukocyte Esterase NEGATIVE (NEGATIVE) 10/07/17 13:00 Urine RBC 0-2 /hpf (0-5) 10/07/17 13:00 Urine WBC 0-2 /hpf (0-5) 10/07/17 13:00 Ur Epithelial Cells FEW /lpf (FEW) 10/07/17 13:00 Urine Bacteria NONE SEEN /hpf (NONE SEEN) 10/07/17 13:00 Salicylates < 25.0 mg/L (30.0-100.0) L 10/07/17 13:20 Urine Opiates Screen NEGATIVE (NEGATIVE) 10/07/17 13:00 Urine Methadone Screen NEGATIVE (NEGATIVE) 10/07/17 13:00 Acetaminophen < 10.0 ug/mL (10.0-30.0) L 10/07/17 13:20 Ur Barbiturates Screen NEGATIVE (NEGATIVE) 10/07/17 13:00 Ur Tricyclics Screen NEGATIVE (NEGATIVE) 10/07/17 13:00 Ur Phencyclidine Scrn NEGATIVE (NEGATIVE) 10/07/17 13:00 Amphetamines Screen NEGATIVE (NEGATIVE) 10/07/17 13:00 U Methamphetamines Scrn NEGATIVE (NEGATIVE) 10/07/17 13:00 U Benzodiazepines Scrn NEGATIVE (NEGATIVE) 10/07/17 13:00 U Cocaine Metab Screen NEGATIVE (NEGATIVE) 10/07/17 13:00 U Cannabinoids Screen NEGATIVE (NEGATIVE) 10/07/17 13:00 Ethyl Alcohol < 10 mg/dL (0-10) 10/07/17 13:20 RPR NONREACTIVE (NONREACTIVE) 10/07/17 13:20 - Physical Exam Vitals and I&O: Vital Signs Temp 98.1 F 07/26/18 14:00 Pulse 97 10/21/17 14:00 Resp 18 10/21/17 14:00 BP 121/67 10/21/17 14:00 Pulse Ox 97 10/21/17 14:00 Intake & Output 10/21/17 10/21/17 10/22/17 06:59 18:59 06:59 Intake Total 120 Balance 120 Intake: Oral 120 Other: # Voids 2 # Bowel Movements 0 Stool Characteristics Soft Soft Active Medications: Current Medications Acetaminophen (Tylenol) 650 mg PO Q4HR PRN PRN Reason: Mild Pain / Temp above 100 Stop: 12/06/17 18:40 Last Admin: 10/16/17 15:19 Dose: 650 mg Al Hydrox/Mg Hydrox/Simethicone (Maalox) 30 ml PO Q4HR PRN PRN Reason: GI DISTRESS Stop: 12/06/17 18:40 Atorvastatin Calcium (Lipitor) 40 mg PO HS [facility] Stop: 12/06/17 20:59 Last Admin: 10/21/17 20:39 Dose: 40 mg Cyanocobalamin (Vitamin B12) 1,000 mcg PO DAILY [facility] Stop: 12/07/17 08:59 Last Admin: 10/21/17 09:02 Dose: 1,000 mcg Ferrous Sulfate (Iron) 325 mg PO DAILY [facility] Stop: 12/07/17 08:59 Last Admin: 10/21/17 09:02 Dose: 325 mg Losartan Potassium (Cozaar) 100 mg PO DAILY [facility] Stop: 12/07/17 08:59 Last Admin: 10/21/17 09:03 Dose: Not Given Magnesium Hydroxide (Milk Of Magnesia) 30 ml PO HS PRN PRN Reason: Constipation Quetiapine Fumarate (Seroquel) 12.5 mg PO DAILY [facility]; Protocol Stop: 12/12/17 08:59 Last Admin: 10/21/17 09:05 Dose: 12.5 mg Quetiapine Fumarate (Seroquel) 12.5 mg PO HS [facility]; Protocol Stop: 12/14/17 20:59 Last Admin: 10/21/17 20:40 Dose: 12.5 mg Vitamin D (Vitamin D3) 2,000 iu PO DAILY [facility] Stop: 12/07/17 08:59 Last Admin: 10/21/17 09:04 Dose: 2,000 iu General: demented HEENT: NC/AT, PERRLA, anicteric sclerae, throat clear Neck: Supple, No JVD, No thyromegaly, +2 carotid pulse wo bruit, No LAD Lungs: CTAB Cardiovascular: RRR, Normal S1, Normal S2, without murmur Abdomen: non-tender, non-distended Extremities: clear Neurological: no change Internal Medicine Assmt/Plan - Assessment Assessment: 1.HTN. 2.HYPERLIPIDEMIA. 3.ANEMIA. 4.DEMENTIA. - Plan Plan: CONTINUE ON CURRENT MEDICATION AND DIET Nutritional Asmnt/Malnutr-PDOC - Dietary Evaluation Malnutrition Findings (Please click <Entered> for more info): Nutritional Asmnt/Malnutrition Start: 10/11/17 14: 34 Text: Status: Complete Freq: Protocol: Document 10/11/17 14:34 LCHENG (Rec: 10/11/17 14:44 LCCLARAG [email or web address]) Nutritional Asmnt/Malnutrition Patient General Information Nutritional Screening Moderate Risk Diagnosis psychosis Pertinent Medical Hx/Surgical Hx HTN, hyperlipidemia, DJD, dementia Subjective Information Pt seen in amando-chair in the hallway, talkative and confused. PO intake 75-100% of meals. Current Diet Order/ Nutrition Support PRICE, low fat Pertinent Medications vit B12, Iron, theragran, seroquel, vit D3 Pertinent Labs 10/07 glucose 90, A1c 6.4 Nutritional Hx/Data Height 1.57 m Height (Calculated Centimeters) 157.5 Current Weight (lbs) 45.359 kg Weight (Calculated Kilograms) 45.4 Weight (Calculated Grams) 95840.2 [place] Body Weight 110 Body Mass Index (BMI) 18.3 Weight Status Underweight GI Symptoms GI Symptoms None Last BM 10/07 Difficult in: None Skin Integrity/Comment: carlos score 19 Current %PO Good (75-100%) Estimated Nutritional Goals BEE in Kcals: Using Current wt Calories/Kcals/Kg 25-30 Kcals Calculated 5556-9332 Protein: Using Current wt Protein g/k-1.2 Protein Calculated 45-54 Fluid: ml 1125-1350ml (1ml/kcal) Nutritional Problem No current Nutrition Prob Problem N/A Malnutrition Alert Is there a minimum of two criteria No selected? Query Text:Check all the applicable criteria. A minimum of two criteria are recommended for diagnosis of either severe or non-severe malnutrition. Malnutrition Related to Morbid Obesity Malnutrition related to morbid obesity No Intervention/Recommendation Comments 1. Continue with PRICE, low fat diet as ordered. Monitor glucose level. 2. Monitor PO intake, wt, labs and skin integrity 3. F/U as low risk in 7 days, 10/18 Expected Outcomes/Goals Expected Outcomes/Goals 1. PO intake to meet at least 75% of nutritional needs. 2. Wt stability, skin to remain intact, labs to approach WNL.
--- NOTE | 2017-10-22 02:10 | Progress Notes ---
DATE: 10/21/2017 SUBJECTIVE: Chart reviewed and the patient interviewed. Also discussed the patient's condition with the staff and reviewed records and labs. The patient continued to be confused. The patient also is anxious and she is still in irritable mood. The patient also is still agitated and she is not able to answer any of my questions coherently. Also, at times she seems sedated, but most of the time, agitated and irritable. I spoke with pillowcase cutter as well as the insurance company and is still working on trying to find placement for the patient and so far no place accepted the patient. ASSESSMENT: The patient is still confused and agitated and considered to be gravely disabled. TREATMENT PLAN: Continue monitoring her behavior and her condition closely. Also, we will continue to work on trying to find placement for the patient and we will continue to follow up. Also, decrease Seroquel to 12.5 mg at bedtime. JOB# [id number]
[2017-10-22] MEDS: Ferrous Sulfate 325 MG TAB PO SCH (09:47)
[2017-10-22] MEDS: Vitamin D3 2,000 IU SGL PO SCH (09:47)
--- NOTE | 2017-10-22 22:54 | Internal Medicine Prog Note ---
Internal Medicine Subjective - Subjective Service Date: 10/22/17 Patient seen and examined:: with staff Patient is:: awake, verbal, in bed, confused Per staff patient has:: no adverse event Internal Medicine Objective - Results Result Diagrams: 10/07/17 13:20 10/07/17 13:20 Recent Labs: Laboratory Last Values WBC 7.4 Th/cmm (4.8-10.8) 10/07/17 13:20 RBC 3.79 Mil/cmm (3.80-5.20) L 10/07/17 13:20 Hgb 11.5 gm/dL (12-16) L 10/07/17 13:20 Hct 34.2 % (41.0-60) L 10/07/17 13:20 MCV 90.2 fl (81-100) 10/07/17 13:20 MCH 30.2 pg (27.0-31.0) 10/07/17 13:20 MCHC Differential 33.5 pg (28.0-36.0) 10/07/17 13:20 RDW 15.1 % (11.5-20.0) 10/07/17 13:20 Plt Count 362 Th/cmm (150-400) 10/07/17 13:20 MPV 7.0 fl 10/07/17 13:20 Add Manual Diff YES 10/07/17 13:20 Neutrophils (Manual) 68 % (40-80) 10/07/17 13:20 Lymphocytes 18 % (20-50) L 10/07/17 13:20 Monocytes 8 % (2-10) 10/07/17 13:20 Eosinophils 2 % (0-5) 10/07/17 13:20 Basophils 4 % (0-3) H 10/07/17 13:20 Platelet Estimate ADEQUATE (NORMAL) 10/07/17 13:20 Sodium 136 mEq/L (136-145) 10/07/17 13:20 Potassium 3.6 mEq/L (3.5-5.1) 10/07/17 13:20 Chloride 98 mEq/L (98-107) 10/07/17 13:20 Carbon Dioxide 28.9 mEq/L (21.0-31.0) 10/07/17 13:20 Anion Gap 12.7 (7.0-16.0) 10/07/17 13:20 BUN 16 mg/dL (7-25) 10/07/17 13:20 Creatinine 0.8 mg/dL (0.6-1.2) 10/07/17 13:20 Est GFR ( Amer) TNP 10/07/17 13:20 Est GFR (Non-Af Amer) TNP 10/07/17 13:20 BUN/Creatinine Ratio 20.0 10/07/17 13:20 Glucose 90 mg/dL (70-105) 10/07/17 13:20 Hemoglobin A1c % 6.4 % (4.0-6.0) H 10/07/17 13:20 Calcium 10.2 mg/dL (8.6-10.3) 10/07/17 13:20 Total Bilirubin 0.6 mg/dL (0.3-1.0) 10/07/17 13:20 AST 21 U/L (13-39) 10/07/17 13:20 ALT 11 U/L (7-52) 10/07/17 13:20 Alkaline Phosphatase 120 U/L (34-104) H 10/07/17 13:20 Total Protein 7.4 gm/dL (6.0-8.3) 10/07/17 13:20 Albumin 3.9 gm/dL (3.7-5.3) 10/07/17 13:20 Globulin 3.5 gm/dL 10/07/17 13:20 Albumin/Globulin Ratio 1.1 (1.0-1.8) 10/07/17 13:20 Triglycerides 91 mg/dL (<150) 10/07/17 13:20 Cholesterol 302 mg/dL (<200) H 10/07/17 13:20 LDL Cholesterol Direct 151 mg/dL (75-193) 10/07/17 13:20 HDL Cholesterol 106 mg/dL (23-92) H 10/07/17 13:20 TSH 1.63 uIU/ml (0.34-5.60) 10/07/17 13:20 Urine Source CLEAN C 10/07/17 13:00 Urine Color YELLOW 10/07/17 13:00 Urine Clarity CLEAR (CLEAR) 10/07/17 13:00 Urine pH 6.0 (4.6 - 8.0) 10/07/17 13:00 Ur Specific [place] 1.015 (1.005-1.030) 10/07/17 13:00 Urine Protein 30 mg/dL (NEGATIVE) H 10/07/17 13:00 Urine Glucose (UA) NEGATIVE mg/dL (NEGATIVE) 10/07/17 13:00 Urine Ketones NEGATIVE mg/dL (NEGATIVE) 10/07/17 13:00 Urine Blood SMALL (NEGATIVE) H 10/07/17 13:00 Urine Nitrate NEGATIVE (NEGATIVE) 10/07/17 13:00 Urine Bilirubin NEGATIVE (NEGATIVE) 10/07/17 13:00 Urine Urobilinogen 0.2 E.U./dL (0.2 - 1.0) 10/07/17 13:00 Ur Leukocyte Esterase NEGATIVE (NEGATIVE) 10/07/17 13:00 Urine RBC 0-2 /hpf (0-5) 10/07/17 13:00 Urine WBC 0-2 /hpf (0-5) 10/07/17 13:00 Ur Epithelial Cells FEW /lpf (FEW) 10/07/17 13:00 Urine Bacteria NONE SEEN /hpf (NONE SEEN) 10/07/17 13:00 Salicylates < 25.0 mg/L (30.0-100.0) L 10/07/17 13:20 Urine Opiates Screen NEGATIVE (NEGATIVE) 10/07/17 13:00 Urine Methadone Screen NEGATIVE (NEGATIVE) 10/07/17 13:00 Acetaminophen < 10.0 ug/mL (10.0-30.0) L 10/07/17 13:20 Ur Barbiturates Screen NEGATIVE (NEGATIVE) 10/07/17 13:00 Ur Tricyclics Screen NEGATIVE (NEGATIVE) 10/07/17 13:00 Ur Phencyclidine Scrn NEGATIVE (NEGATIVE) 10/07/17 13:00 Amphetamines Screen NEGATIVE (NEGATIVE) 10/07/17 13:00 U Methamphetamines Scrn NEGATIVE (NEGATIVE) 10/07/17 13:00 U Benzodiazepines Scrn NEGATIVE (NEGATIVE) 10/07/17 13:00 U Cocaine Metab Screen NEGATIVE (NEGATIVE) 10/07/17 13:00 U Cannabinoids Screen NEGATIVE (NEGATIVE) 10/07/17 13:00 Ethyl Alcohol < 10 mg/dL (0-10) 10/07/17 13:20 RPR NONREACTIVE (NONREACTIVE) 10/07/17 13:20 - Physical Exam Vitals and I&O: Vital Signs Temp 97.2 F 07/27/18 14:35 Pulse 80 10/22/17 14:35 Resp 17 10/22/17 14:35 BP 131/73 10/22/17 14:35 Pulse Ox 97 10/22/17 14:35 Intake & Output 10/22/17 10/22/17 10/23/17 06:59 18:59 06:59 Intake Total 120 Balance 120 Intake: Oral 120 Other: # Voids 3 # Bowel Movements 0 Stool Characteristics Soft Soft General: demented HEENT: NC/AT, PERRLA, anicteric sclerae, throat clear Neck: Supple, No JVD, No thyromegaly, +2 carotid pulse wo bruit, No LAD Lungs: CTAB Cardiovascular: RRR, Normal S1, Normal S2, without murmur Abdomen: non-tender, non-distended Extremities: clear Neurological: no change Internal Medicine Assmt/Plan - Assessment Assessment: 1.HTN. 2.HYPERLIPIDEMIA. 3.ANEMIA. 4.DEMENTIA. - Plan Plan: CONTINUE ON CURRENT MEDICATION AND DIET Nutritional Asmnt/Malnutr-PDOC - Dietary Evaluation Malnutrition Findings (Please click <Entered> for more info): Nutritional Asmnt/Malnutrition Start: 10/11/17 14: 34 Text: Status: Complete Freq: Protocol: Document 10/11/17 14:34 LCCLARAG (Rec: 10/11/17 14:44 LCRADHA [id number]) Nutritional Asmnt/Malnutrition Patient General Information Nutritional Screening Moderate Risk Diagnosis psychosis Pertinent Medical Hx/Surgical Hx HTN, hyperlipidemia, DJD, dementia Subjective Information Pt seen in amando-chair in the hallway, talkative and confused. PO intake 75-100% of meals. Current Diet Order/ Nutrition Support PRICE, low fat Pertinent Medications vit B12, Iron, theragran, seroquel, vit D3 Pertinent Labs 10/07 glucose 90, A1c 6.4 Nutritional Hx/Data Height 1.57 m Height (Calculated Centimeters) 157.5 Current Weight (lbs) 45.359 kg Weight (Calculated Kilograms) 45.4 Weight (Calculated Grams) 11590.2 [place] Body Weight 110 Body Mass Index (BMI) 18.3 Weight Status Underweight GI Symptoms GI Symptoms None Last BM 10/07 Difficult in: None Skin Integrity/Comment: carlos score 19 Current %PO Good (75-100%) Estimated Nutritional Goals BEE in Kcals: Using Current wt Calories/Kcals/Kg 25-30 Kcals Calculated 6649-4742 Protein: Using Current wt Protein g/k-1.2 Protein Calculated 45-54 Fluid: ml 1125-1350ml (1ml/kcal) Nutritional Problem No current Nutrition Prob Problem N/A Malnutrition Alert Is there a minimum of two criteria No selected? Query Text:Check all the applicable criteria. A minimum of two criteria are recommended for diagnosis of either severe or non-severe malnutrition. Malnutrition Related to Morbid Obesity Malnutrition related to morbid obesity No Intervention/Recommendation Comments 1. Continue with PRICE, low fat diet as ordered. Monitor glucose level. 2. Monitor PO intake, wt, labs and skin integrity 3. F/U as low risk in 7 days, 10/18 Expected Outcomes/Goals Expected Outcomes/Goals 1. PO intake to meet at least 75% of nutritional needs. 2. Wt stability, skin to remain intact, labs to approach WNL.
--- NOTE | 2017-10-24 17:35 | Discharge Summary ---
DATE OF DISCHARGE: 10/22/2017 AGE: 76. SEX: Female. PHYSICIAN: Dr. Riddle. FINAL DIAGNOSIS/PRIMARY DIAGNOSIS: Unspecified psychosis. CHIEF COMPLAINT: The patient was admitted to the hospital from home because of confusion and agitation and forgetfulness. HOSPITAL COURSE: The patient continued to be confused and restless and agitated. The patient was given Seroquel. Gradually, the patient's affect was brighter. The patient was still agitated at times, but she was confused. The patient fell and required four stitches in her head. Otherwise, no other major medical problems. Placement was an issue. Seroquel was decreased to 12.5 mg at bedtime. Finally, the patient was accepted in [place] and the patient was transferred there. PHYSICAL EXAMINATION: The patient fell and had four stitches in her head. AFTER DISCHARGE PLANS: The patient discharged from the hospital to [facility] with plans to be followed there. EXPECTED OUTCOME AFTER DISCHARGE: Fair if the patient continued to take psychotropic medications and follow up with discharge plans. [facility]# [id number]
== END 2017-10-22 22:40 | DRG 885 ==
LOC: ER 12:14 → GERO2 17:50
PROVIDERS: ADMIT Psychiatry & Neurology Psychiatry; ATTEND Psychiatry & Neurology Psychiatry
PROC: 0HQ0XZZ Repair Scalp Skin, External Approach (ICD-10-PCS; principal; 2017-10-17)
DX: F23 Brief psychotic disorder (principal); S06.6X9A Traumatic subarachnoid hemorrhage with loss of consciousness of unspecified duration, initial encounter; F03.91 Unspecified dementia, unspecified severity, with behavioral disturbance; S01.01XA Laceration without foreign body of scalp, initial encounter; I10 Essential (primary) hypertension; E78.5 Hyperlipidemia, unspecified; D64.9 Anemia, unspecified; M19.90 Unspecified osteoarthritis, unspecified site; W18.30XA Fall on same level, unspecified, initial encounter; Y93.89 Activity, other specified; Y92.89 Other specified places as the place of occurrence of the external cause; Y99.8 Other external cause status; Z96.641 Presence of right artificial hip joint; Z88.0 Allergy status to penicillin; Z87.891 Personal history of nicotine dependence; Z95.5 Presence of coronary angioplasty implant and graft
CPT/HCPCS: 36415-UA; 70450-TC; 80053-TC; 80061-TC; 80307; 80320-TC; 80329-TC; 81001-TC; 83036-90; 84443-TC; 85007-TC; 85025-TC; 86592-TC; 93005; 97530; X3904; Z7610

== ENCOUNTER 2017-10-15 03:36 | Emergency (ER) | payer MEDICARE ==
[2017-10-15] MEDS ORDERED: EPINEPHRine /Lidocaine 1% 20 mL Vial INJ ONE (03:46)
--- NOTE | 2017-10-15 03:58 | ED Physician Chart ---
ED Chief Complaint/HPI - Patient Information Date Seen:: 10/15/17 Time Seen:: 03:40 Chief Complaint:: scalp laceration History of Present Illness:: Patient fell out of bed and [facility] striking her head. Patient denies neck pain. Allergies:: Allergies Allergy/AdvReac Type Severity Reaction Status Date / Time Penicillins Allergy Verified 10/07/17 12:33 Vitals:: Vital Signs - 8 hr 10/15/17 03:40 Temp 97.9 F HR 85 RR 18 BP 124/82 O2 Sat % 97 Historian:: Patient Review:: Nurse's Note Reviewed ED Review of Systems - Review of Systems General/Constitutional: No fever, No chills, No weight loss, No weakness, No diaphoresis, No edema, No loss of appetite Skin: Skin lesions, No rash, No bruising Head: No headache, No light-headedness Eyes: No loss of vision, No pain, No diplopia ENT: No earache, No nasal drainage, No sore throat, No tinnitus Neck: No neck pain, No swelling, No thyromegaly, No stiffness, No mass noted Cardio Vascular: No chest pain, No palpitations, No PND, No orthopnea, No edema Pulmonary: No SOB, No cough, No sputum, No wheezing GI: No nausea, No vomiting, No diarrhea, No pain, No melena, No hematochezia, No constipation, No hematemesis G/U: No dysuria, No frequency, No hematuria Musculoskeletal: No bone or joint pain, No back pain, No muscle pain Endocrine: No polyuria, No polydipsia Psychiatric: No prior psych history, No depression, No anxiety, No suicidal ideation Hematopoietic: No bruising, No lymphadenopathy Allergic/Immuno: No urticaria, No angioedema Neurological: No syncope, No focal symptoms, No weakness, No paresthesia, No headache, No seizure, No dizziness, No confusion, No vertigo ED Past Medical History - Past Medical History Past Medical History: Dementia Family History: Other (unavailable) Social History: Other (unavailable) Surgical History: other Psychiatricy History: Dementia Family Medical History - Family Member Mother History Unknown: Yes ED Physical Exam - Physical Examination General/Constitutional: Awake, Well-developed, well-nourished, Alert, No distress, GCS 15, Non-toxic appearing, Ambulatory Other Gen/Cons comments:: Alert and confused. Patient does not know the correct year. Head: Atraumatic Eyes: Lids, conjuctiva normal, PERRL, EOMI Skin: No ecchymosis, Well hydrated, No lymphadenopathy Other Skin comments:: 2-1/2 cm superior occipital scalp laceration just to the right of the midline. ENMT: External ears, nose nl, Nasal exam nl, Lips, teeth, gums nl Neck: Nontender, Full ROM w/o pain, No JVD, No nuchal rigidity, No bruit, No mass, No stridor Respiratory: Nl effort/Exclusion, Clear to Auscultation, No Wheeze/Rhonchi/Rales Cardio Vascular: RRR, No murmur, gallop, rubs, NL S1 S2 GI: No tenderness/rebounding/guarding, No organomegaly, No hernia, Normal BS's, Nondistended, No mass/bruits, No McBurney tenderness : No CVA tenderness Extremities: No tenderness or effusion, Full ROM, normal strength in all extremities, No edema, Normal digits & nails Neuro/Psych: Alert/oriented, DTR's symmetric, Normal sensory exam, Normal motor strength, Judgement/insight normal, Mood normal, Normal gait, No focal deficits Misc: Normal back, No paraspinal tenderness ED Labs/Radiology/EKG Results - Lab Results Results: Radiologist called me at about 0515 saying that patient may have a small subarachnoid hemorrhage in the left frontal lobe. He suggested repeating the CAT scan in 6-[address] Ameena Charlton of the CAT scan result and he wishes the patient to return to [facility]. ED Assessment - Procedures Procedures:: Skin cleansed with Betadine solution performed; 1% Xylocaine with epinephrine for local anesthesia; 3-0 chromic 4 to 5 running sutures used to close the laceration Laceration Type:: Simple ED Septic Shock - . Is Septic Shock (SBP<90, OR Lactate>4 mmol\L) present?: No - <6hrs of presentation: Vital Signs: Vital Signs - 8 hr 10/15/ 03:40 Temp 97.9 F HR 85 RR 18 BP 124/82 O2 Sat % 97 ED Reassessment (Disposition) - Reassessment Reassessment Condition:: Improved - Diagnosis Diagnosis:: 2 and half centimeter occipital scalp laceration; possible left frontal subarachnoid hemorrhage - Patient Disposition Discharge/Transfer:: Acute Care w/in this hosp Admitted to:: [facility] Admitting Medical Physician:: Sunita Hoover Condition at Disposition:: Stable, Improved
--- NOTE | 2017-10-15 08:42 | Diagnostic Imaging Report ---
Exam: CT examination of brain. HISTORY: Head trauma. Total DLP equals 585 CTDI equals 32.1 Findings: Multiple contiguous thin section of the brain were obtained from the base of skull to the vertex without the administration material, no prior studies available comparison. The study COPD limited by motion artifacts. Patient wasn't able to tolerate procedure There is evidence for a questionable subarachnoid hemorrhage blood collection the left frontal lobe. Recommend follow-up examination with better positioning and sedation the patient There is evidence for ventricular prominence throughout. There is evidence of periventricular ischemic white of the changes and prominence of cerebral sulci suggestive of atrophy with small vessel disease. Posterior right parietal scalp soft tissue swelling. There is no evidence of midline shift. IMPRESSION: Question of trace subarachnoid blood collection the left frontal lobe. Recommend follow-up Atrophy, prominence ventricular system. The ischemic white matter changes of long-standing etiology.
--- NOTE | 2017-10-16 21:37 | Progress Notes ---
DATE: 10/15/2017 SUBJECTIVE: Chart reviewed and the patient interviewed. Also, discussed the patient's condition with the staff and reviewed records and labs. The patient fell last night and had in her head. The patient currently denies any dizziness and feeling too depressed. She is still slightly confused. She also still needs redirections. She also is still unable to answer questions at all. ASSESSMENT: The patient is highly confused and needs close monitoring. TREATMENT PLAN: Continue to monitor her behavior and her condition closely. Also, continue to work on her ineffective coping and her confusion. We will also work on placement. I did call the [facility] and discussed with them plans and they need a physical therapy and occupational therapy evaluation and ordered. JOB# [id number]
--- NOTE | 2017-10-19 21:05 | Progress Notes ---
DATE: 10/15/2017 SUBJECTIVE: Case discussed with staff of the patient, reviewed records. The patient continues to isolate himself, depressed, continues to have episodes of agitation, irritability, unable to follow direction, poor insight, hard to communicate. She is compliant with the medication with no side effects, no sedation, no nausea and no extrapyramidal symptoms. We will continue the patient in group therapy, milieu therapy, and adjust the medications as needed. [facility]# [id number]
== END 2017-10-15 05:35 ==
LOC: ER 03:36
DX: S01.01XA Laceration without foreign body of scalp, initial encounter (principal); Z88.0 Allergy status to penicillin; W06.XXXA Fall from bed, initial encounter; Y93.89 Activity, other specified; Y92.89 Other specified places as the place of occurrence of the external cause; Y99.8 Other external cause status
CPT/HCPCS: 12001; 70450-TC; X6488; Z7502; Z7610